=== PATIENT | female | born 1955 | race Caucasian/White ===

== ENCOUNTER → 2019-08-05 | Day surgery (SDC) | payer OTHER ==
--- NOTE | 2019-08-03 14:27 | Diagnostic Imaging Report ---
Chest, PA and lateral. History: Preoperative evaluation for urologic surgery. Comparison: None available. Discussion: The cardiomediastinal silhouette and pulmonary vasculature are within normal limits. The lungs are clear without evidence of consolidation or effusion. There are no acute osseous abnormalities. IMPRESSION: No acute cardiopulmonary abnormality. Signed by: Jeffry Wilkinson MD on 08/03/2019 2:23 PM
[2019-08-03 14:29] LABS: BASOPHILS % 0.5 % (0.0-1.0); EOSINOPHILS # (AUTO) 0.2 (0.0-0.4); EOSINOPHILS % 2.7 % (0.0-6.0); HEMATOCRIT 36.6 % (34.2-44.1); HEMOGLOBIN 12.1 g/dL (12.0-16.0); LYMPHOCYTES # (AUTO) 3.9 (1.0-3.2); LYMPHOCYTES % 53.5 % (18.0-39.1); MEAN CORPUSCULAR HEMOGLOBIN 31.5 pg (28-32); MEAN CORPUSCULAR HGB CONC 33.1 g/dL (31-35); MEAN CORPUSCULAR VOLUME 95.3 fL (81-99); MONOCYTES # (AUTO) 0.6 (0.2-0.8); NEUTROPHILS # (AUTO) 2.5 (2.1-6.9); NEUTROPHILS % 34.5 % (38.7-80.0); PLATELET COUNT 432 x10e3/uL (140-360); RED BLOOD COUNT 3.84 x10e6/uL (3.6-5.1); RED CELL DISTRIBUTION WIDTH 11.9 % (11.7-14.4)
--- NOTE | 2019-08-03 14:30 | Diagnostic Imaging Report ---
Abdomen, one view on 2 radiographs Clinical indications: Ureteral stone Comparison: None Findings/impression: There is a 7 mm calcific density overlying the right psoas muscle at the L3 level and a 3 mm calcific density overlying the left psoas muscle at the level of the L4 level. Calcific densities overlying the pelvis are likely phleboliths. No acute osseous abnormalities. Signed by: Jeffry Wilkinson MD on 08/03/2019 2:26 PM
[2019-08-03 15:33] LABS: ANION GAP 12.9 mmol/L (8-16); CALCIUM 9.5 mg/dL (8.4-10.2); CREATININE, SERUM 1.56 mg/dL (0.57-1.11); POTASSIUM 4.9 mmol/L (3.5-5.1)
[~2019-08-05] MED LIST: ACETAMINOPHEN325 M1 PO; B&O 60MG R/S 60 MG SUPP PR ONE; DEXAMETHASONE SOD PHOS INJ 4 MG/ML VIAL ONE; FENOFIBRATE145 MG PO; FENTANYL CITRATE/PF 100MCG/2 ML INJ ONE; FLOMAX0.4 MG PO; GENTAMICIN 120MG/NS 100ML 100 ML ONE; IOPAMIDOL 300MG/ML 50ML INFUS..BTL IV ONE; LIDOCAINE HCL 2% LOCAL INJ 5 ML SDV VIAL INJ ONE; METOPROLOL SUCC25 MG PO; ONDANSETRON HCL INJ 2MG/ML 2ML 2 MG/ML VIAL ONE; PLAQUENIL200 MG PO; PROPOFOL IV EMULSION 10 MG/ML 20 ML VIAL ONE; SEVOFLURANE INHAL SOLN 250 ML PEN BTL ONE; VENTOLIN HFA18 GM INH
--- OUTSIDE RECORDS SUMMARY | 2019-08-05 11:54 | XMS REPORT | Summary of Care ---
Author Author [facility] - Health Organization [facility] - Health Address Unknown Phone Unavailable Care Team Providers Care Pole Incisor Operator Name Role Phone Julio C Darden PCP Reason for Visit * Reason Comments Follow-up * (Routine) Referred By Contact Referred To Contact Status Reason Specialty Diagnoses / Procedures Julio C Darden [address] [place] [address] [address] [place] [address] Higinio Henry MD [address] [address] Authorized [facility] Diagnoses / Dermatology Discoid lupus erythematosus P rocedures CONSULT/REFERRAL DERMATOLOGY Encounter Details Care Team Description Date Type Department Higinio Henry MD [address] [id number] Ulcer of ankle, unspecified laterality, limited to breakdown of skin (Primary Dx); Rash and nonspecific skin eruption; Cutaneous lupus erythematosus; Medication monitoring encounter 01/15/2019 Office Visit [facility] Dermatology-[address] [phone] Allergies Comments Active Allergy Reactions Severity Noted Date Atorvastatin Rash High 03/13/2017 Patient has reaction to swelling in hands after CT 07/23/2018 Iodine And Iodide Swelling 07/24/2018 Containing Products HER BODY TURNS RED BURNING AND ITCHING Niacin Unknown - See 09/01/2010 comments Penicillins Hives, 01/23/2018 Shortness of Breath Mqcbvqs-Bvv-Bbf Reductase Hives, Other Inhibitors - See comments Varenicline Rash Medium documented as of this encounter (statuses as of 01/16/2019) Medications End Date Status Medication Sig Dispensed Refills Start Date Active ALBUTEROL SULFATE Inhale as 0 (VENTOLIN INHALE) needed. 1 Active metformin ER 500 mg 24 hr Take 1,000 mg 0 tablet by mouth 2 (two) times daily. Active ergocalciferol, vitamin Take by 0 D2, (VITAMIN D ORAL) mouth weekly. Active icosapent ethyl (VASCEPA) Take by 0 1 gram capsule mouth daily. Active fenofibrate 54 mg tablet 0 8 Active nicotine 21 mg/24 hr nicotine 21 0 patch mg/24 hr daily transdermal patch Active famciclovir 500 mg tablet 0 5 Active TRULICITY 1.5 mg/0.5 mL 0 PnIj 9 Active mupirocin 2 % Apply to 30 g 0 ointmentIndications: area(s) 3 9 Ulcer of ankle, (three) times unspecified laterality, daily. limited to breakdown of skin Active halobetasol 0.05 % Apply to 150 g 2 creamIndications: Rash area(s) 2 9 and nonspecific skin (two) times eruption daily. Active hydroxychloroquine Take 1 tablet 90 tablet 1 (PLAQUENIL) 200 mg by mouth 9 tabletIndications: daily. Cutaneous lupus erythematosus, Medication monitoring encounter Active hydrOXYzine 10 mg Take 1 tablet 90 tablet 1 tabletIndications: by mouth 9 Cutaneous lupus every 8 erythematosus (eight) hours as needed for Itching. 01/15/2019 Discontinued hydroxychloroquine Take 1 tablet 90 tablet 1 (PLAQUENIL) 200 mg by mouth 9 tabletIndications: daily. Cutaneous lupus erythematosus, Medication monitoring encounter 01/15/2019 Discontinued halobetasol 0.05 % Apply to 150 g 2 creamIndications: Rash area(s) 2 9 and nonspecific skin (two) times eruption daily. documented as of this encounter (statuses as of 01/16/2019) Active Problems Problem Noted Date Microscopic hematuria 07/22/2018 Current smoker 07/22/2018 Exposure to chemical pollution 07/22/2018 History of nephrolithiasis 07/22/2018 documented as of this encounter (statuses as of 01/16/2019) Social History Date Tobacco Use Types Packs/Day Years Used Current Every Day Smoker Cigarettes 1 Smokeless Tobacco: Never Used Drinks/Week oz/Week Comments Alcohol Use No Sex Assigned at Date Recorded Not on file Industry Job Start Date Occupation Not on file Not on file Not on file Travel End Travel History Travel Start No recent travel history available. documented as of this encounter Last Filed Vital Signs Not on filedocumented in this encounter Progress Notes * Bridgett Beaulieu MD - 01/15/2019 9:50 AM CDT CC: lupus follow up HPI Elena Tanner is a 63 year old female who presents for follow up of biopsy proven lupus erythematous. She is currently on Plaquenil 200mg daily which has h elped significantly. Overall she reports improvement and today she does not poin t out any active areas today. Also has an ulcer on her left foot, thinks she scratched it open about 10-14days ago. Initially had a black crust, took 10days of doxycycline from her PCP. Now just using neosporin and bandaids daily. DIAGNOSIS: RIGHT MID BACK: INTERFACE DERMATITIS AND SUPERFICIAL AND DEEP DENSE PERIVASCULAR/ADNEXAL LYMPHOPLASMACYTIC INFILTRATE WITH INCREASED DERMAL MUCIN CONSISTENT WITH LUPUS ERYTHEMATOSUS NO EOSINOPHILS OR EVIDENCE OR PRIMARY IMMUNOBULLOUS DISORDER SEEN IMMUNOSTAINS FOR CD3, CD4, CD5, CD8, CD20, AND CD30 EXAMINED LEVELS AND COLLOIDAL IRON STAIN (+) EXAMINED MADISYN STAIN NEGATIVE FOR ORGANISMS, POSITIVE CONTROLS EXAMINED COMMENT: Comment: The clinical photographs and patient chart were reviewed. The immunohistochemical panel reveals the infiltrate to be composed of predomina tely CD3+ T-lymphocytes with an appropriate ratio of CD4: CD8 (<4:1) positive T-lymphocytes with retention of CD5 expression. Admixed within the T-cell infiltrate is a small population of CD20+ B-lymphocytes. The i mmunoprofile is consistent with a reactive infiltrate composed predominately of CD3 and CD4 positive T-lymphocytes , as seen in cutaneous lupus Erythematosus. Histories Past Medical History: Diagnosis Date Diabetes mellitus High cholesterol Kidney stone 2006 Allergies Allergies Allergen Reactions Atorvastatin Rash Varenicline Rash Contrast [Iodine And Iodide Containing Products] Swelling Patient has reaction to swelling in hands after CT 07/23/2018 Niacin Unknown - See comments HER BODY TURNS RED BURNING AND ITCHING Pcn [Penicillins] Hives and Shortness of Breath Gdzhhgb-Ojp-Vcj Reductase Inhibitors Hives and Other - See comments Medications Current Outpatient Medications on File Prior to Visit Medication Sig Dispense Refill halobetasol 0.05 % cream Apply to area(s) 2 (two) times daily. 150 g 2 hydroxychloroquine (PLAQUENIL) 200 mg tablet Take 1 tablet by mouth daily. 9 0 tablet 1 TRULICITY 1.5 mg/0.5 mL PnIj famciclovir 500 mg tablet nicotine 21 mg/24 hr patch nicotine 21 mg/24 hr daily transdermal patch fenofibrate 54 mg tablet ergocalciferol, vitamin D2, (VITAMIN D ORAL) Take by mouth weekly. icosapent ethyl (VASCEPA) 1 gram capsule Take by mouth daily. metformin ER 500 mg 24 hr tablet Take 1,000 mg by mouth 2 (two) times daily. ALBUTEROL SULFATE (VENTOLIN INHALE) Inhale as needed. No current facility-administered medications on file prior to visit. Review of Systems Constitutional: Pain (-) Skin: Itching (-), Rash (+) Physical Exam General: No acute distress Psychiatric: Normal affect Pulmonary: Breathing unlabored FACE: Negative EYES: Negative BACK: Positive RIGHT ARM: Negative LEFT ARM: Positive RIGHT LEG: Positive LEFT LEG: Positive Assessment/Plan 1. Ulceration - limited breakdown of the skin - previously treated with 10 days of doxycycline, no signs of infection today - debridement offered - mupirocin and bandage applied today in clinic. - start mupirocin 2% ointment daily with bandage changes. 2. Milia Cyst - Wood border - benign etiology discussed, reassurance provided. 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 - Continues to be well controlled today - Previous path by outside physician: superficial and deep perivascular infiltra te on 02/2018. Path report did not specify eosinophils present. - Repeat rash biopsy on 06/30/18 also c/w lupus erythematosus Labs reviewed: - CORY negative from outside physician on 04/01/18. - CORY, EVENT SET UP SPECIALIST, SSA, SSB, C3 and C4 were all wnl on 07/17/18. - Negative pemphigoid panel and epidermal transglutaminase - DIF and IIF negative - CMP, CBC, CK, G6PD on 08/06/18 - Pt says she showed the CXR from 07/30/18 to her PCP, who told the patient that the lung lesion has not significantly changed. Records provided today and upload ed into chart - Has been treated for scabies in the past. - Continue halobetasol 0.05% cream BID PRN lesions - Discontinued saxagliptin-metformin in Jun 2018 - She reports seeing ophthalmology at [facility] about twice a year due to "inc reased pressure in the eyes", per pt. At her most recent appointment she says th e plsql developer did not find any retinal findings or other findings that would prevent her from starting plaquenil. She says the plsql developer told her that they were faxing the results to the [facility] Dermatology clinic. She has a follow u p with them in jan 2019. - Continue plaquenil 200mg PO daily; discussed the importance of annual eye exa ms, states she has an appointment in 3 weeks. RTC 2 wks Patient was seen in clinic and plan of care discussed with Higinio Henry MD. Bridgett Beaulieu MD Dermatology PGY-2 01/15/2019 * Loretta Cheung MA - 01/15/2019 9:50 AM CDT Patient is being seen in clinic for follow up Patient is alert,ambulatory,and oriented. Medication and allergies reviewed with patient. Vital sign deferred by doctor. No pain noted at this time. No falls in the past 12 months. Preferred language is [place]. Loretta Cheung MA 01/15/2019 9:50 AM documented in this encounter Plan of Treatment Care Team Description Date Type Specialty Higinio Henry MD [id number] [place] [address] [phone] 02/02/2019 Office Visit Dermatology Health Maintenance Due Date Last Done Comments HEPATITIS C (HCV) SCREEN 1955 PNEUMOCOCCAL 0-64 YEARS 1963 COMBINED SERIES (1 of 1 - PPSV23) DTaP,Tdap,and Td Vaccines 1976 (1 - Tdap) MAMMOGRAM 1997 COLONOSCOPY 2007 Zoster Recombinant 2007 Vaccine (SHINGRIX) (1 of 2) LUNG CANCER SCREEN: 2012 Recommended for age 55-80 with 30 + pack year history INFLUENZA VACCINE (#1) 2019 01/11/2018 PAP SMEAR 01/23/2021 01/23/2018 documented as of this encounter Results Not on filedocumented in this encounter Visit Diagnoses Diagnosis Ulcer of ankle, unspecified laterality, limited to breakdown of skin - Primary Rash and nonspecific skin eruption Rash and other nonspecific skin eruption Cutaneous lupus erythematosus Lupus erythematosus Medication monitoring encounter Encounter for therapeutic drug monitoring documented in this encounter Insurance Type Payer Benefit Subscriber ID Effective Phone Address Plan / Dates Group [id number] 2006- [facility] Present (Home) [place] [address] documented as of this encounter
--- OUTSIDE RECORDS SUMMARY | 2019-08-05 11:54 | XMS REPORT | Summary of Care ---
Author Author [facility] [[email or web address]] - Health Organization [facility] [[email or web address]] - Health Address Unknown Phone Unavailable Care Team Providers Care Cheese Processor Name Role Phone Julio C Darden PCP Reason for Visit * Reason Comments Follow-up * (Routine) Referred By Contact Referred To Contact Status Reason Specialty Diagnoses / Procedures Julio C Darden [address] [place] [address] [address] [place] [address] Higinio Henry MD [address] [facility] [id number] [place] [id number] Authorized [facility] Diagnoses / Dermatology Discoid lupus erythematosus P rocedures CONSULT/REFERRAL DERMATOLOGY Encounter Details Care Team Description Date Type Department Higinio Henry MD [address] [phone] Ulcer of ankle, unspecified laterality, limited to breakdown of skin (Primary Dx); Rash and nonspecific skin eruption; Cutaneous lupus erythematosus; Medication monitoring encounter 01/15/2019 Office Visit [facility] Dermatology-[address] [phone] Allergies Comments Active Allergy Reactions Severity Noted Date Atorvastatin Rash High 03/13/2017 Patient has reaction to swelling in hands after CT 07/23/2018 Iodine And Iodide Swelling 07/24/2018 Containing Products HER BODY TURNS RED BURNING AND ITCHING Niacin Unknown - See 09/01/2010 comments Penicillins Hives, 01/23/2018 Shortness of Breath Cokwzko-Rym-Mpw Reductase Hives, Other Inhibitors - See comments Varenicline Rash Medium documented as of this encounter (statuses as of 01/15/2019) Medications End Date Status Medication Sig Dispensed [...] as of this encounter (statuses as of 01/15/2019) Active Problems Problem Noted Date Microscopic hematuria 07/22/2018 Current smoker 07/22/2018 Exposure to chemical pollution 07/22/2018 History of nephrolithiasis 07/22/2018 documented as of this encounter (statuses as of 01/15/2019) Social History Date Tobacco Use Types Packs/Day [...] Pcn [Penicillins] Hives and Shortness of Breath Jvzwrtt-Abb-Ulu Reductase Inhibitors Hives and Other - See [...] with bandage changes. 2. Milia Cyst - [place] border - benign etiology discussed, reassurance provided. [...] from outside physician on 04/01/18. - CORY, BRIM POUNCER, SSA, SSB, C3 and C4 were all [...] 2018 - She reports seeing ophthalmology at [facility] about twice a year due to "inc reased pressure in the eyes", per pt. At her most recent appointment she says th e auto hiker did not find any retinal findings or other findings that would prevent her from starting plaquenil. She says the auto hiker told her that they were faxing the results to the [facility] [[email or web address]] Dermatology clinic. She has a follow u [...] the past 12 months. Preferred language is Faroese. Loretta Cheung MA 01/15/2019 9:50 AM documented in this encounter Plan of Treatment Care Team Description Date Type Specialty Higinio Henry MD [id number] [place] [address] [phone] 02/02/2019 Office Visit Dermatology Health Maintenance Due [...] Effective Phone Address Plan / Dates Group [id number] 2006- [facility] Present (Home) [place] [address] documented as of this encounter
--- OUTSIDE RECORDS SUMMARY | 2019-08-05 11:54 | XMS REPORT ---
Author Author [facility] Address Unknown Phone Unavailable Care Team Providers Care Organizational Development Specialist Name Role Phone NILAY BABB Unavailable Unavailable Payers Payer Name Policy Type Policy Number Effective Date Expiration Date Problems This patient has no known problems. Allergies, Adverse Reactions, Alerts Allergy Name Allergy Type Status Severity Reaction(s) Onset Date Inactive Date Treating Clinician Comments potassium chloride DA Active SV 2019-07-25 00:00:00 Iodinated Contrast Media DA Active SV 2019-07-22 00:00:00 Penicillins DA Active MO 2019-07-22 00:00:00 Htoledl-Xpi-Mvb Reductase Inhibitor DA Active MO 2019-07-22 00:00:00 niacin DA Active SC 2019-07-22 00:00:00 varenicline DA Active MO 2019-07-22 00:00:00 Iodinated Contrast- Oral and IV Dye DA Active SV 2019-02-08 00:00:00 Penicillins DA Active U 2018-07-24 00:00:00 Lgwacas-Htu-Hmh Reductase Inhibitor DA Active U 2018-07-24 00:00:00 niacin DA Active U 2018-07-24 00:00:00 varenicline DA Active U 2018-07-24 00:00:00 Medications This patient has no known medications. Results Test Description Test Time Test Comments Text Results Atomic Results Result Comments ABDOMEN-1VIEW (KUB) 2019-08-03 14:24:00 [place] [address] Patient Name: HÉCTOR GUZMAN MR #: [id number] : 1955 Age/Sex: 64/F Req #: [id number] Adm Physician: Ordered by: NILAY BABB MD Report #: [id number] Location: OR Room/Bed: Procedure: [id number] DX/ABDOMEN-1VIEW (KUB) Exam Date: 08/03/19 Exam Time: 1405 REPORT STATUS: Signed Abdomen, one view on 2 radiographs Clinical indic ations: Ureteral stone Comparison: None Findings/impression: There is a 7 mm calcific density overlying the right psoas muscle at the L3 level and a 3 mm calcific density overlying the left psoas muscle at the level of the L4 level. Calcific densities overlying the pelvis are likely phleboliths. No acute osseous abnormalities. Signed by: Jeffry Leyva MD on 08/03/2019 2:26 PM Dictated By: JEFFRY LEYVA MD 25 Transcribed By: MICA on 08/03/191425 COPY TO: NILAY BABB MD CHEST 2 VIEWS 2019-08-03 14:23:00 [place] [address] Patient Name: HÉCTOR GUZMAN MR #: [id number] : 1955 Age/Sex: 64/F Req #: [id number] Adm Physician: Ordered by: NILAY BABB MD Report #: [id number] Location: OR Room/Bed: Procedure: [id number] DX/CHEST 2 VIEWS Exam Date: 08/03/19 Exam Time: 1405 REPORT STATUS: Signed Chest, PA and lateral. History: Preoperative evaluation f or urologic surgery. Comparison: None available. Discussion: The cardiomediastinal silhouette and pulmonary vasculature are within normal limits. The lungs are clear without evidence of consolidation or effusion. There are no acute osseous abnormalities. IMPRESSION: No acute cardiopulmonary abnormality. Signed by: Jeffry Leyva MD on 08/03/2019 2:23 PM Dictated By: JEFFRY LEYVA MD 22 Transcribed By: MICA on 08/03/191422 COPY TO: NILAY BABB MD GLUBED 2019-07-28 11:44:00 GLUBED (test code=GLUBED) 112 mg/dL 70-110 - XR CYSTOURETHRO [id number] 11:30:00 FAX: Nilay Kuhn MD [phone] [place]: St: DIS FAX: Julio C Poe MD [phone] FAX: [place]y [place] [phone] Name: HÉCTOR GUZMAN [facility] : 1955 Age/S: 64/F [address] [facility] [place] Unit #: [id number] Loc: E.[address] [place], [place]: [place] [address] Acct: [id number] Dis Date: [id number] Status: DIS IN ONE #: [phone] Exam Date: 07/28/2019 0820 FAX #: [phone] Reason: BILATERAL RETROGRADES EXAMS: CPT CODE: [id number] XR CYSTOURETHRO RETRO 18729 REASON FOR EXA M: Pyelonephritis, stent placement Bilateral retrograde pyelogram. Fluoroscopy time 1.4 minutes, total dose 16.18 mGy. 4 total films were obtained The left ureter is access for the pyelogram injection showing normal diameter. Tiny filling defect at the renal pelvi s level likely a tiny air bubble as no stones are seen in the left ureter or calyces The right ureter cannot be entered for the injection. IMPRESSION: Left ureter intact. Tiny air bubbles suspected proxi mal left ureter. No access for the right ureteral injection could be obtained. Location: U 19 [facility] Signed by Niraj Aguilar M.D on 07/28/2019 a t 1130 Reported and signed by: Niraj alvarado M.D CC: Nilay Babb MD; Julio C Darden MD; Frances holliday MD Technologist: GEORGE GREGORY Trnscrd Date/Time/By: 07/28/2019 (0602) : By: [email or web address] PAGE 1 Signed Report FAX: Froylan Kuhn MD [phone] [place]: St: DIS FAX: Julio C Poe MD [phone] FAX: [place] [phone] Name: HÉCTOR ODONNELL [facility] : 1955 Age/S: 64/F [address] [facility] Unit #: [id number] c: [address] [place] [address] [place]: [place] [address] Acct: [id number] Dis Date: 317 Status: DIS IN PHONE #: [phone] Exam Date: 07/28/2019819 FAX #: [phone] Anna son: BILATERAL RETROGRADES EXAMS: CPT CODE: [id number] XR CYSTOURETHRO RETRO 48247 <Continued> Orig Print D/T: S: 07/28/2019 (7568) PAGE 2 Signed Report BASIC METABOLIC [id number] 10:48:00* Test Item Value Reference Range Comments SODIUM (test code=NA) 141 mmol/l 134.0-147.0 POTASSIUM (test code=K) 3.6 mmol/L 3.6-5.2 CHLORIDE (test code=CL) 105 mmol/l 98.0-107.0 CARBON DIOXIDE (test code=CO2) 26.9 mmol/l 21.0-33.0 ANION GAP (test code=GAP) 12.7 0-20 GLUCOSE (test code=GLU) 105 mg/dl 70.0-110.0 BLOOD UREA NITROGEN (test code=BUN) 17 mg/dl 7.0-18.0 CREATININE (test code=CREAT) 1.25 mg/dL 0.60-1.30 GFR NON BLACK (test code=GFRNONBLACK) 46 mL/min 80-90 GFR BLACK (test code=GFRBLACK) 56 mL/min 97-109 CALCIUM (test code=CA) 9.1 mg/dl 8.0-10.5 PT IN SURGERY @ 0915 [id number] 21:06:00* Test Item Value Reference Range Comments GLUBED (test code=GLUBED) 140 mg/dL 70-110 [id number] 16:35:00* Test Item Value Reference Range Comments GLUBED (test code=GLUBED) 97 mg/dL 70-110 [id number] 11:45:00* Test Item Value Reference Range Comments GLUBED (test code=GLUBED) 102 mg/dL 70-110 [id number] 08:37:00* Test Item Value Reference Range Comments GLUBED (test code=GLUBED) 83 mg/dL 70-110 - XR ABDOMEN [id number] 08:25:00 FAX: Dipti Garcia [phone] [place]: St: ADM FAX: Julio C Poe MD [phone] FAX: [place] [phone] Name: HÉCTOR GUZMAN [facility] : 1955 Age/S: 64/F [address] [facility] Unit #: [id number] Loc: E.208 [place], [place] Phys: Dipti Esqueda [address] Acct: [id number] Dis Date: Status: ADM IN ONE #: [phone] Exam Date: 07/27/2019 0700 FAX #: [phone] Reason: Eval UVJ stone EXAMS: CPT CODE: [id number] XR ABDOMEN 2V 27559 REASON FOR EXA M: Right ureterovesicular junction calculus, reassessment. A bdomen, single view. The calcification at the expected area of the right ureterovesicular junction is still seen, tiny. Other phlebolith-li ke densities in the pelvis, stable. No other obvious renal or ureteral ca lculi. Cholecystectomy. Normal gas pattern and stool content. Mild levoscoliosis in the spine. IMPRESSION: Tiny calculus at the expected area of the right ureterovesicular junction, stable in po sition. Normal gas pattern and stool content. Location: 19 at 0825 Reported and signed by: Niraj Aguilar M.D CC: Tonya PRICE; Julio C Darden MD; Frances Wilks MD Technologist: JOON CALLAWAY Trnscrd Date/Time/By: 07/27/2019 (0825) : By: [email or web address] PAGE 1 Signed Report FAX: Dipti Garcia [phone] [place]: St: ADM FAX: Julio C Poe MD [phone] FAX: Dusty Pretty [phone] Name: HÉCTOR GUZMAN [facility] : 1955 Age/S: 64/F [address] [facility] [place] Unit #: [id number] Loc: E.[address] [place], [place] Phys: Dipti [place]queda [address] Acct: [id number] Dis Date: Status: ADM IN PHONE #: [phone] Exam Date: 07/27/2019 0700 FAX #: [phone] Reason: Eval UVJ stone EXAMS: CPT CODE: [id number] XR ABDOMEN 2V 36840 < Continued> Orig Print D/T: S: 07/27/2019 (0828) PAGE 2 Signed Report [id number] 20:39:00* Test Item Value Reference Range Comments GLUBED (test code=GLUBED) 86 mg/dL 70-110 [id number] 16:33:00* Test Item Value Reference Range Comments GLUBED (test code=GLUBED) 115 mg/dL 70-110 [id number] 11:52:00* Test Item Value Reference Range Comments GLUBED (test code=GLUBED) 86 mg/dL 70-110 [id number] 07:52:00* Test Item Value Reference Range Comments GLUBED (test code=GLUBED) 85 mg/dL 70-110 BASIC METABOLIC [id number] 04:16:00* Test Item Value Reference Range Comments SODIUM (test code=NA) 142 mmol/l 134.0-147.0 POTASSIUM (test code=K) 3.3 mmol/L 3.6-5.2 CHLORIDE (test code=CL) 109 mmol/l 98.0-107.0 CARBON DIOXIDE (test code=CO2) 23.5 mmol/l 21.0-33.0 ANION GAP (test code=GAP) 12.8 0-20 GLUCOSE (test code=GLU) 89 mg/dl 70.0-110.0 BLOOD UREA NITROGEN (test code=BUN) 12 mg/dl 7.0-18.0 CREATININE (test code=CREAT) 1.31 mg/dL 0.60-1.30 GFR NON BLACK (test code=GFRNONBLACK) 44 mL/min 80-90 GFR BLACK (test code=GFRBLACK) 53 mL/min 97-109 CALCIUM (test code=CA) 8.7 mg/dl 8.0-10.5 [id number] 16:24:00* Test Item Value Reference Range Comments GLUBED (test code=GLUBED) 89 mg/dL 70-110 - XR ABDOMEN [id number] 13:23:00 FAX: Dipti Garcia [phone] [place]: St: ADM FAX: Julio C Poe MD [phone] FAX: [place] [phone] Name: HÉCTOR GUZMAN [facility] : 1955 Age/S: 64/F [address] [facility] Unit #: [id number] Loc: E.[address] [place], [place] Phys: Dipti [place]qu[place] [address] Acct: [id number] Dis Date: Status: ADM IN ONE #: [phone] Exam Date: 07/25/2019 1145 FAX #: [phone] Reason: Eval UVJ stone EXAMS: CPT CODE: [id number] XR ABDOMEN 2V 69737 Examination: Two-view abdomen Location code: H60 Comparison: 07/23 Discussion: Clinical history is remarkable for right UVJ calculus. When compared to the prior examination the all radiopaque calculus in the right hemipelvis thought to be a UVJ calcul us is still present. It is essentially unchanged in position. There is a nonspecific gas pattern in the abdomen. Patient is status p ost cholecystectomy. Fecal debris seen scattered throughout the co enoch consistent with constipation. Impression: 1. Radiopaque calculus in the right hemipelvis unchanged in location or appearance when compared to the prior study. Electronically S igned by KIMBERLY CONNELL on 07/25/2019 at 1323 Reported and s igned by: KIMBERLY CONNELL CC: Dipti PRICE; Julio C Darden MD; Dusty Wilks MD Technologist: BEAN OCAMPO Trnscrd Date/Time/By: 07/25/2019 (2474) : By: [email or web address] PAGE 1 Signed Report FAX: Dipti Garcia [phone] [place]: St: ADM FAX: Carmine Poe MD [phone] FAX: [place] [phone] ---- Nam e: HÉCTOR GUZMAN [facility] : Age/S: 64/F [address] [facility] Unit #: [id number] Loc: [address] [place], [place] Phys: Sruthi Esqueda [address] Acct: [id number] Dis Shen e: Status: ADM IN PHONE #: Exam Date: 07/25/2019 1145 FAX #: [phone] Reason: Eval UVJ stone EXAMS: CPT CODE: [id number] XR ABDOMEN 2V 68838 <Continued> Orig Print D/T: S: 07/25/2019 (4002) PAGE 2 Signed Report GLUBED 2019-07-25 12:10:00* Test Item Value Reference Range Comments GLUBED (test code=GLUBED) 101 mg/dL 70-110 [id number] 07:32:00* Test Item Value Reference Range Comments GLUBED (test code=GLUBED) 82 mg/dL 70-110 COMPREHENSIVE METABOLIC [id number] 06:10:00* Test Item Value Reference Range Comments SODIUM (test code=NA) 139 mmol/l 134.0-147.0 POTASSIUM (test code=K) 3.3 mmol/L 3.6-5.2 CHLORIDE (test code=CL) 105 mmol/l 98.0-107.0 CARBON DIOXIDE (test code=CO2) 23.4 mmol/l 21.0-33.0 ANION GAP (test code=GAP) 13.9 0-20 GLUCOSE (test code=GLU) 100 mg/dl 70.0-110.0 BLOOD UREA NITROGEN (test code=BUN) 12 mg/dl 7.0-18.0 CREATININE (test code=CREAT) 1.45 mg/dL 0.60-1.30 GFR NON BLACK (test code=GFRNONBLACK) 39 mL/min 80-90 GFR BLACK (test code=GFRBLACK) 47 mL/min 97-109 TOTAL PROTEIN (test code=PROT) 6.9 gm/dL 6.4-8.2 ALBUMIN (test code=ALB) 3.0 gm/dl 3.2-4.7 CALCIUM (test code=CA) 8.8 mg/dl 8.0-10.5 BILIRUBIN TOTAL (test code=BILT) 0.6 mg/dl 0.0-1.0 SGOT/AST (test code=AST) 15 Units/L 15.0-37.0 SGPT/ALT (test code=ALT) 23 Units/L 12.0-78.0 ALKALINE PHOSPHATASE TOTAL (test code=ALKP) 68 Units/L 50.0-136.0 CBC W/AUTO [id number] 05:47:00* Test Item Value Reference Range Comments WHITE BLOOD CELL (test code=WBC) 7.6 K/mm3 4.5-11.0 RED BLOOD CELL (test code=RBC) 3.41 M/mm3 3.80-5.20 HEMOGLOBIN (test code=HGB) 10.6 gm/dL 12.0-16.0 HEMATOCRIT (test code=HCT) 31.6 % 36.0-48.0 MEAN CELL VOLUME (test code=MCV) 92.7 UM3 82.0-99.0 MEAN CELL HGB (test code=MCH) 31.1 UUG 25.5-32.5 MEAN CELL HGB CONCETRATION (test code=MCHC) 33.5 gm/dL 29.0-35.5 RED CELL DISTRIBUTION WIDTH (test code=RDW) 11.6 % 11.5-15.0 RED CELL DISTRIBUTION WIDTH SD (test code=RDW-SD) 39.2 fL 34.8-50.2 PLATELET COUNT (test code=PLT) 171 K/mm3 150-400 MEAN PLATELET VOLUME (test code=MPV) 10.5 fl 7.4-10.4 NEUTROPHIL % (test code=NT%) 66.4 % 49.0-76.0 IMMATURE GRANULOCYTE % (test code=IG%) 0.3 % 0.0-0.4 LYMPHOCYTE % (test code=LY%) 19.6 % 23.0-38.0 MONOCYTE % (test code=MO%) 12.1 % 1.0-10.0 EOSINOPHIL % (test code=EO%) 1.5 % 1.0-5.0 BASOPHIL % (test code=BA%) 0.1 % 0.0-1.0 NEUTROPHIL # (test code=NT#) 5.0 K/mm3 2.4-6.3 IMMATURE GRANULOCYTE # (test code=IG#) 0.02 x10 3/uL 0.00-0.07 LYMPHOCYTE # (test code=LY#) 1.5 K/mm3 1.2-4.0 MONOCYTE # (test code=MO#) 0.9 K/mm3 0.0-0.6 EOSINOPHIL # (test code=EO#) 0.1 K/MM3 0.0-0.7 BASOPHIL # (test code=BA#) 0.0 K/mm3 0.0-0.2 [id number] 21:14:00* Test Item Value Reference Range Comments GLUBED (test code=GLUBED) 79 mg/dL 70-110 [id number] 18:33:00* Test Item Value Reference Range Comments GLUBED (test code=GLUBED) 142 mg/dL 70-110 [id number] 13:46:00* Test Item Value Reference Range Comments GLUBED (test code=GLUBED) 101 mg/dL 70-110 COMPREHENSIVE METABOLIC [id number] 12:23:00* Test Item Value Reference Range Comments SODIUM (test code=NA) 138 mmol/l 134.0-147.0 POTASSIUM (test code=K) 3.6 mmol/L 3.6-5.2 CHLORIDE (test code=CL) 104 mmol/l 98.0-107.0 CARBON DIOXIDE (test code=CO2) 23.5 mmol/l 21.0-33.0 ANION GAP (test code=GAP) 14.1 0-20 GLUCOSE (test code=GLU) 104 mg/dl 70.0-110.0 BLOOD UREA NITROGEN (test code=BUN) 15 mg/dl 7.0-18.0 CREATININE (test code=CREAT) 1.61 mg/dL 0.60-1.30 GFR NON BLACK (test code=GFRNONBLACK) 34 mL/min 80-90 GFR BLACK (test code=GFRBLACK) 42 mL/min 97-109 TOTAL PROTEIN (test code=PROT) 6.6 gm/dL 6.4-8.2 ALBUMIN (test code=ALB) 3.0 gm/dl 3.2-4.7 CALCIUM (test code=CA) 8.4 mg/dl 8.0-10.5 BILIRUBIN TOTAL (test code=BILT) 0.5 mg/dl 0.0-1.0 SGOT/AST (test code=AST) 16 Units/L 15.0-37.0 SGPT/ALT (test code=ALT) 22 Units/L 12.0-78.0 ALKALINE PHOSPHATASE TOTAL (test code=ALKP) 59 Units/L 50.0-136.0 CBC W/AUTO [id number] 12:04:00* Test Item Value Reference Range Comments WHITE BLOOD CELL (test code=WBC) 8.4 K/mm3 4.5-11.0 RED BLOOD CELL (test code=RBC) 3.36 M/mm3 3.80-5.20 HEMOGLOBIN (test code=HGB) 10.5 gm/dL 12.0-16.0 HEMATOCRIT (test code=HCT) 31.6 % 36.0-48.0 MEAN CELL VOLUME (test code=MCV) 94.0 UM3 82.0-99.0 MEAN CELL HGB (test code=MCH) 31.3 UUG 25.5-32.5 MEAN CELL HGB CONCETRATION (test code=MCHC) 33.2 gm/dL 29.0-35.5 RED CELL DISTRIBUTION WIDTH (test code=RDW) 11.8 % 11.5-15.0 RED CELL DISTRIBUTION WIDTH SD (test code=RDW-SD) 39.7 fL 34.8-50.2 PLATELET COUNT (test code=PLT) 162 K/mm3 150-400 MEAN PLATELET VOLUME (test code=MPV) 10.8 fl 7.4-10.4 NEUTROPHIL % (test code=NT%) 73.4 % 49.0-76.0 IMMATURE GRANULOCYTE % (test code=IG%) 0.6 % 0.0-0.4 LYMPHOCYTE % (test code=LY%) 16.0 % 23.0-38.0 MONOCYTE % (test code=MO%) 9.1 % 1.0-10.0 EOSINOPHIL % (test code=EO%) 0.7 % 1.0-5.0 BASOPHIL % (test code=BA%) 0.2 % 0.0-1.0 NEUTROPHIL # (test code=NT#) 6.2 K/mm3 2.4-6.3 IMMATURE GRANULOCYTE # (test code=IG#) 0.05 x10 3/uL 0.00-0.07 LYMPHOCYTE # (test code=LY#) 1.4 K/mm3 1.2-4.0 MONOCYTE # (test code=MO#) 0.8 K/mm3 0.0-0.6 EOSINOPHIL # (test code=EO#) 0.1 K/MM3 0.0-0.7 BASOPHIL # (test code=BA#) 0.0 K/mm3 0.0-0.2 - XR ABDOMEN 1 [id number] 09:14:00 FAX: Dipti Garcia [phone] [place]: St: ADM FAX: Julio C Poe MD [phone] FAX: [place]y [place] [phone] Name: HÉCTOR GUZMAN [facility] : 1955 Age/S: 64/F [address] [facility] [place] Unit #: [id number] Loc: E.[address] [place], [place] Phys: Dipti Esqueda [address] Acct: [id number] Dis Date: Status: ADM IN ONE #: [phone] Exam Date: 07/24/2019 0842 FAX #: [phone] Reason: Progression of stone EXAMS: CPT CODE: [id number] XR ABDOMEN 1 V 33716 EXAM: XR ABDOM EN 1 VIEW INDICATION: Progression of stone LOCATION: B2 COMPARISON: None. TECHNIQUE: AP view of the a bdomen. FINDINGS: Lines, tubes and hardware: None. Lower thorax: Unremarkable where visualized. Bowel: Non-obstructive bowel gas pattern. Other organs: Cholecystectomy clips are seen in the right upper quadrant. Calcifications: Overlying bowel gas and stool limits evaluation of distal ureteral calcu li. Faint densities in the region of the right distal ureter likely repre sents some remaining small calculi. Bones: No acute osseous abn ormalities. IMPRESSION: Limited evaluation of distal ureteral calculi due to overlying stool and bowel gas. Faint densities in the region of the right distal ureter likely representing some remai jerod small calculi. at 0914 Reported and signed by: Linda Kulkarni M.D. CC: Dipti PRICE; Julio C Darden MD; Frances Wilks MD Technologist: GEORGE MELVIN Trnscrd Date/Time/By: 07/24/2019 (0 449) : By: [email or web address] PAGE 1 Signed Report FAX: Dipti Garcia [phone] Ca mpus: EM St: ADM FAX: Julio C Poe MD [phone] FAX: [place] [phone] Name: HÉCTOR GUZMAN [facility] : 1955 Age/S: 64/F [address] [facility] [place] Unit #: [id number] Loc: E.208 [facility] Phys: Dipti Esqueda [address] Acct: [id number] Dis Date: Status: ADM IN PHONE #: [phone] Exam Date: 07/24/2019 0842 FAX #: [phone] Reason: Progression of stone EXAMS: CPT CODE: [id number] XR ABDOMEN 1 V 24082 <Continued> Orig Print D/T: S: 07/24/2019 (0983) PAGE 2 Signed Report [id number] 07:37:00* Test Item Value Reference Range Comments GLUBED (test code=GLUBED) 111 mg/dL 70-110 [id number] 22:56:00* Test Item Value Reference Range Comments GLUBED (test code=GLUBED) 103 mg/dL 70-110 [id number] 17:39:00* Test Item Value Reference Range Comments GLUBED (test code=GLUBED) 121 mg/dL 70-110 [id number] 16:09:00* Test Item Value Reference Range Comments HGBA1C% (test code=HGBA1C%) 5.6 %A1C 4.8-6.0 ESTIMATED AVERAGE GLUCOSE (test code=EAG) 114 MG/DL [id number] 14:28:00* Test Item Value Reference Range Comments GLUBED (test code=GLUBED) 126 mg/dL 70-110 - XR ABDOMEN [id number] 08:25:00 FAX: Nilay Kuhn MD [phone] [place]: St: [facility] FAX: Julio C Poe MD [phone] FAX: Dusty [place] [phone] Name: HÉCTOR GUZMAN [facility] : 1955 Age/S: 64/F [address] [facility] Unit #: [id number] Loc: E.[address] [place], [place]: [place] [address] Acct: [id number] Dis Date: Status: ADM IN [facility] #: [phone] Exam Date: 07/23/2019 0745 FAX #: [phone] Reason: RIGHT URETERAL STONE EXAMS: CPT CODE: [id number] XR ABDOMEN 2V 45808 Dictation loca tion: U19. ABDOMEN, UPRIGHT AND SUPINE VIEWS HISTORY: RIGHT UR ETERAL STONE FINDINGS: The multiple stones along the distal right ureter near the UVJ are not significantly changed. The larg est measures 4 mm. Phleboliths are also noted in the left pelvis. Cholec ystectomy. Nonobstructive bowel gas pattern. Mild lumbar spondylosis. IMPRESSION: Multiple right ureteral stone near t he UVJ are likely similar in location to prior CT from 07/22/19. at 0825 Reported and signed by: Tru Mccauley M.D. CC: Nilay Babb MD; Julio C Darden MD; Frances Wilks MD Technologist: GEORGE GREGORY Trnsdrd Date/Time/By: 07/23/2019 (0825) : By: [email or web address] PAGE 1 Signed Report FAX: Nilay Kuhn MD [phone] [place]: St: ADM FAX: Julio C Poe MD [phone] FAX: Velia WareDusty fenton [phone] Name: HÉCTOR GUZMAN [facility] : 1955 Age/S: 64/F [address] [facility] Unit #: [id number] Loc: E.[address] [place], [place]: [place] [address] Acct: [id number] Dis Date: Status: ADM IN PHONE #: [phone] Exam Date: 07/23/2019 0745 FAX #: [phone] Reason: RIGHT URETERAL STONE EXAMS: CPT CODE: [id number] XR ABDOMEN 2V 47128 <Continued> Orig Print D/T: S: 07/23/2019 (0828) PAGE 2 Signed Report [id number] 08:03:00* Test Item Value Reference Range Comments GLUBED (test code=GLUBED) 116 mg/dL 70-110 COMPREHENSIVE METABOLIC [id number] 06:19:00* Test Item Value Reference Range Comments SODIUM (test code=NA) 141 mmol/l 134.0-147.0 POTASSIUM (test code=K) 4.2 mmol/L 3.6-5.2 CHLORIDE (test code=CL) 105 mmol/l 98.0-107.0 CARBON DIOXIDE (test code=CO2) 24.9 mmol/l 21.0-33.0 ANION GAP (test code=GAP) 15.3 0-20 GLUCOSE (test code=GLU) 101 mg/dl 70.0-110.0 BLOOD UREA NITROGEN (test code=BUN) 18 mg/dl 7.0-18.0 CREATININE (test code=CREAT) 1.52 mg/dL 0.60-1.30 GFR NON BLACK (test code=GFRNONBLACK) 37 mL/min 80-90 GFR BLACK (test code=GFRBLACK) 44 mL/min 97-109 TOTAL PROTEIN (test code=PROT) 6.8 GM/DL 6.0-8.1 ALBUMIN (test code=ALB) 3.4 gm/dL 3.2-4.7 CALCIUM (test code=CA) 8.7 mg/dl 8.0-10.5 BILIRUBIN TOTAL (test code=BILT) 0.4 mg/dl 0.0-1.0 SGOT/AST (test code=AST) 13 Units/L 15.0-37.0 SGPT/ALT (test code=ALT) 24 Units/L 12.0-78.0 ALKALINE PHOSPHATASE TOTAL (test code=ALKP) 49 Units/L 50.0-136.0 CBC W/AUTO [id number] 05:54:00* Test Item Value Reference Range Comments WHITE BLOOD CELL (test code=WBC) 14.0 K/mm3 4.5-11.0 RED BLOOD CELL (test code=RBC) 3.89 M/mm3 3.80-5.20 HEMOGLOBIN (test code=HGB) 12.1 gm/dL 12.0-16.0 HEMATOCRIT (test code=HCT) 36.6 % 36.0-48.0 MEAN CELL VOLUME (test code=MCV) 94.1 UM3 82.0-99.0 MEAN CELL HGB (test code=MCH) 31.1 UUG 25.5-32.5 MEAN CELL HGB CONCETRATION (test code=MCHC) 33.1 gm/dL 29.0-35.5 RED CELL DISTRIBUTION WIDTH (test code=RDW) 11.8 % 11.5-15.0 RED CELL DISTRIBUTION WIDTH SD (test code=RDW-SD) 39.8 fL 34.8-50.2 PLATELET COUNT (test code=PLT) 217 K/mm3 150-400 MEAN PLATELET VOLUME (test code=MPV) 10.8 fl 7.4-10.4 NEUTROPHIL % (test code=NT%) 80.0 % 49.0-76.0 IMMATURE GRANULOCYTE % (test code=IG%) 0.6 % 0.0-0.4 LYMPHOCYTE % (test code=LY%) 13.6 % 23.0-38.0 MONOCYTE % (test code=MO%) 5.3 % 1.0-10.0 EOSINOPHIL % (test code=EO%) 0.1 % 1.0-5.0 BASOPHIL % (test code=BA%) 0.4 % 0.0-1.0 NEUTROPHIL # (test code=NT#) 11.2 K/mm3 2.4-6.3 IMMATURE GRANULOCYTE # (test code=IG#) 0.08 x10 3/uL 0.00-0.07 LYMPHOCYTE # (test code=LY#) 1.9 K/mm3 1.2-4.0 MONOCYTE # (test code=MO#) 0.7 K/mm3 0.0-0.6 EOSINOPHIL # (test code=EO#) 0.0 K/MM3 0.0-0.7 BASOPHIL # (test code=BA#) 0.1 K/mm3 0.0-0.2 [id number] 22:49:00* Test Item Value Reference Range Comments HGBA1C% (test code=HGBA1C%) 5.5 %A1C 4.8-6.0 ESTIMATED AVERAGE GLUCOSE (test code=EAG) 111 MG/DL - CT ABD PELVIS W/O [id number] 18:30:00 FAX: Lucrecia Edward MD [phone] [place]: St: REG FAX: Julio C Poe MD [phone] Name: HÉCTOR GUZMAN [facility] : 1955 Age/S: 64/F [address] [facility] [address] [place] [facility] [place] Unit: [id number] Loc: E.EXP [place], [place] Phys: [place] [id number] Acct: [id number] Dis Date: Status: REG ER PHONE #: [phone] Exam Date: 07/22/2019 5357 FAX #: [phone] Reason: RIGHT FLANK PAIN PREVBV STONE EXAMS: CPT CODE: [id number] CT ABD PELVIS W/O CONT [id number] Location: C3 EXAM: CT ABDOMEN AND PELVIS WITHOUT CONTRAST INDICATION: RIGHT FLANK PAIN PREVBV STONE COMPARISON: CT abdomen and pelvis dated 02/08/2019 TECHNIQUE: CT of the abdomen and pelvis was performed with no intravenous contrast. All CT scans are performed using radiation dose reduction technique. Techn ical factors are evaluated and adjusted to insure appropriate moderation o f exposure. Automated dose management technology is applied to adjust the radiation dose to minimize exposure while achieving a diagnostic quality image. DLP: 436.90 mGy-cm FINDINGS: Statements: Lack o f intravenous contrast compromises evaluation of abdominopelvic organs and vasculature. Thoracic: There are unchanged pericardial calcifica tions, nonspecific, but which may represent residual prior pericarditis or trauma. No pericardial effusion. Minimal atelectatic changes are noted w ithin the lung bases. Hepatobiliary/spleen: A few focal calc ifications are identified within the hepatic and splenic parenchyma, which may represent calcified granulomas, sequelae of old, prior granulomatous disease. No focal liver lesion is identified. No intrahepatic or extrahe patic biliary dilatation is seen. Gallbladder: Status post c holecystectomy. Pancreas: Unremarkable. Adrenals: Unremarkable. Kidneys: There is mild right hydronephrosis and hydr oureter secondary to a few small obstructing renal calculi at the ureterov esicular junction measuring up to 4 mm in size (see images 73, 74 and 75 o f series 2). Additional nonobstructing renal calculi are noted within the right renal calyces, measuring up to 3 mm. There is mild PAGE 1 Signed Report (CONTINUED) FAX: Lucrecia Merlos MD [phone] [place]: St: [facility] FAX: Julio C Poe MD [phone] Name: HÉCTOR GUZMAN [facility] : 1955 Age/S: 64/F [address] [facility] Unit: [id number] Loc: E.EXP [place], [place]: [place] [address] Acct: [id number] Dis Date: Status: REG ER PHONE #: [phone] Exam Date: 07/22/2019 1756 FAX #: [phone] Reason: RIGHT FLANK PAIN PREVBV STONE EXAMS: CPT CODE: [id number] CT ABD PELVIS W/O CONT 26111 < Continued> perinephric fat stranding on the right. No left- sided hydronephrosis or hydroureter. No renal calculi are identified on the left. Bladder/Reproductive system: Evaluation of the bladder is limited, but no obvious bladder abnormality is present. Gastrointestinal: Incidental note is made of a small duodenal diverticulum. There are a few colonic diverticuli along the sigmoid colon, without diverticulitis. No bowel obstruction or perienteric inflammation. The appendix is normal. Vascular: Atherosclerotic calcifications are seen within the aorta and branch vessels. No aneurysmal dilatation. Lymphatics: No enlarged lymph nodes by CT size criteria. Bones/Soft Tissues: No acute osseous findings. There are mild multilevel degenerative changes of the lower thoracic and lumbar spine No ventral hernias. Peritoneum/Other: No extraluminal air. No extraluminal fluid. IMPRESSION: Mild right hydroureteronephrosis secondary to a few small nonobstructing renal calculi within the right ureterovesicular junction, measuring up to 4 mm in size (see images 73, 74 and 75 of series 2). Additional nonobstructive renal calculi within the right renal calyces. No left-sided hydronephrosis, hydroureter or renal calculi. at 1830 Reported and signed by: MIKIE RAMOS M.D. PAGE 2 Signed Report (CONTINUED) FAX: Lucrecia Edward MD [phone] [place]: St: REG FAX: Julio C Poe MD [phone] Name: HÉCTOR GUZMAN [facility] : 1955 Age/S: 64/F [address] Unit: [id number] Loc: E.EXP [place], [place]: [place] [address] Acct: [id number] Dis Date: Status: REG ER PHONE #: [phone] Exam Date: 07/22/2019 1756 FAX #: [phone] Reason: RIGHT FLANK PAIN PREVBV STONE EXAMS: CPT CODE: [id number] CT ABD PELVIS W/O CONT 27045 < Continued> CC: Lucrecia Edward MD; Julio C Darden MD Technologist: JEREMY RYAN Trnscrd Dt/Tm: 07/22/2019 (1829) [id number] Orig Print D/T: S: 07/22/2019 (1833 PAGE 3 Signed Report BASIC METABOLIC [id number] 17:59:00* Test Item Value Reference Range Comments SODIUM (test code=NA) 142 mmol/l 134.0-147.0 POTASSIUM (test code=K) 4.4 mmol/L 3.6-5.2 CHLORIDE (test code=CL) 105 mmol/l 98.0-107.0 CARBON DIOXIDE (test code=CO2) 27.0 mmol/l 21.0-33.0 ANION GAP (test code=GAP) 14.4 0-20 GLUCOSE (test code=GLU) 93 mg/dl 70.0-110.0 BLOOD UREA NITROGEN (test code=BUN) 17 mg/dl 7.0-18.0 CREATININE (test code=CREAT) 1.38 mg/dL 0.60-1.30 GFR NON BLACK (test code=GFRNONBLACK) 41 mL/min 80-90 GFR BLACK (test code=GFRBLACK) 50 mL/min 97-109 CALCIUM (test code=CA) 9.5 mg/dl 8.0-10.5 Specimen comments: Clean CatchHEPATIC FUNCTION PANEL [id number] 17:59:00* Test Item Value Reference Range Comments TOTAL PROTEIN (test code=PROT) 7.9 GM/DL 6.0-8.1 ALBUMIN (test code=ALB) 4.2 gm/dL 3.2-4.7 BILIRUBIN TOTAL (test code=BILT) 0.2 mg/dl 0.0-1.0 BILIRUBIN DIRECT (test code=BILD) 0.1 mg/dl 0.0-0.3 SGOT/AST (test code=AST) 16 Units/L 15.0-37.0 SGPT/ALT (test code=ALT) 26 Units/L 12.0-78.0 ALKALINE PHOSPHATASE TOTAL (test code=ALKP) 55 Units/L 50.0-136.0 Specimen comments: Clean [id number] 17:59:00* Test Item Value Reference Range Comments LIPASE (test code=LIP) 140 Units/L 65.0-230.0 Specimen comments: Clean [id number] 17:59:00* Test Item Value Reference Range Comments TROPONIN-I (test code=TROPI) <0.02 NG/ML 0.00-0.06 REFERENCE RANGE TROPONIN I HEALTHY INDIVIDUALS: <0.06 ng/mL R/O ISCHEMIA: 0.07 - 0.60 ng/mL CUT-OFF RANGE FOR AMI: 0.60 - 1.5 ng/mL Specimen comments: Clean CatchBASIC METABOLIC [id number] 17:50:00* Test Item Value Reference Range Comments SODIUM (test code=NA) 142 mmol/l 134.0-147.0 POTASSIUM (test code=K) 4.4 mmol/L 3.6-5.2 CHLORIDE (test code=CL) 105 mmol/l 98.0-107.0 CARBON DIOXIDE (test code=CO2) 27.0 mmol/l 21.0-33.0 ANION GAP (test code=GAP) 14.4 0-20 GLUCOSE (test code=GLU) mg/dl 70.0-110.0 BLOOD UREA NITROGEN (test code=BUN) mg/dl 7.0-18.0 CREATININE (test code=CREAT) mg/dL 0.60-1.30 GFR NON BLACK (test code=GFRNONBLACK) mL/min 80-90 GFR BLACK (test code=GFRBLACK) mL/min 97-109 CALCIUM (test code=CA) mg/dl 8.0-10.5 Specimen comments: Clean CatchHEPATIC FUNCTION PANEL [id number] 17:50:00* Test Item Value Reference Range Comments TOTAL PROTEIN (test code=PROT) gm/dL 6.4-8.2 ALBUMIN (test code=ALB) gm/dl 3.2-4.7 BILIRUBIN TOTAL (test code=BILT) mg/dl 0.0-1.0 BILIRUBIN DIRECT (test code=BILD) mg/dl 0.0-0.3 SGOT/AST (test code=AST) Units/L 15.0-37.0 SGPT/ALT (test code=ALT) Units/L 12.0-78.0 ALKALINE PHOSPHATASE TOTAL (test code=ALKP) Units/L 50.0-136.0 Specimen comments: Clean [id number] 17:50:00* Test Item Value Reference Range Comments LIPASE (test code=LIP) Units/L 65.0-230.0 Specimen comments: Clean [id number] 17:50:00* Test Item Value Reference Range Comments TROPONIN-I (test code=TROPI) NG/ML 0.00-0.06 Specimen comments: Clean CatchPROTHROMBIN [id number] 17:45:00* Test Item Value Reference Range Comments PROTHROMBIN TIME PATIENT (test code=PTP) 11.2 SECONDS 9.9-12.8 INTERNATIONAL NORMAL RATIO (test code=INR) 1.0 0.89-1.14 THE INR IS TO BE USED ONLY FOR MONITORING ORAL ANTICOAGULANTTHERAPY. THE FOLLOWING ARE SUGGESTED RANGES FROM THEAMERICAN COLLEGE OF CHEST PHYSICIANS:INDICATION INR VALUEPROPHYLAXIS OF VENOUS THROMBOSIS (ORTHOPEDIC SURGERY) 2.0 - 3.0PROPHYLAXIS OF VENOUS THROMBOSIS (OTHER THAN HIGH-RISK SURGERY) 2.0 - 3.0TREATMENT OF DEEP VEIN THROMBOSIS OR PULMONARY EMBOLISM 2.0 - 3.0PREVENTION OF SYSTEMIC EMBOLISM TISSUE HEART VALVES 2.0 - 3.0 ACUTE MYOCARDIAL INFARCTION (TO PREVENT SYSTEMIC EMBOLISM) 2.0 - 3.0 ACUTE MYOCARDIAL INFARCTION (TO PREVENT RECURRENT INFARCT) 2.5 - 3.0 VALVULAR HEART DISEASE 2.0 - 3.0 ATRIAL FIBRILATION 2.0 - 3.0BILEAFLET MECHANICAL VALVE IN AORTIC POSITION 2.0 - 3.0MECHANICAL PROSTHETIC VALVES (HIGH RISK) 2.5 - 3.5PRESENCE OF LUPUS ANTICOAGULANT OR ANTIPHOSPHOLIPID ANTIBODIES 2.5 - 3.5 Specimen comments: Clean CatchIs patient on anticoagulants? NTHROMBOPLASTIN TIME [id number] 17:45:00* Test Item Value Reference Range Comments THROMBOPLASTIN TIME PARTIAL (test code=PTT) 31.10 SECONDS 25.86-36.07 [facility] Therapeutic Range - APTT of 55.8-85.4 secondscorrelates with plasma heparin concentration of 0.2-0.4 u/mL New range effective - 07/08/2016 Specimen comments: Clean CatchIs patient on anticoagulants? NURINALYSIS COMPLETE 2019-07-22 17:42:00* Test Item Value Reference Range Comments UA COLOR (test code=COLU) YELLOW UA APPEARANCE (test code=APPU) SLHZY UA GLUCOSE DIPSTICK (test code=DGLUU) NORMAL mg/dl NORMAL UA BILIRUBIN DIPSTICK (test code=BILU) NEGATIVE mg/dL NEGATIVE UA KETONE DIPSTICK (test code=KETU) NEGATIVE mg/dl NEGATIVE UA SPECIFIC GRAVITY (test code=SGU) 1.025 1.000-1.030 UA BLOOD DIPSTICK (test code=MICHELLE) 150 Lit/micL Lit/micL NEGATIVE UA PH DIPSTICK (test code=MARQUIS) 5.0 5.0-9.0 UA PROTEIN DIPSTICK (test code=PROU) 100 mg/dl NEGATIVE UA UROBILINIOGEN DIPSTICK (test code=URO) NORMAL mg/dl NORMAL UA NITRITE DIPSTICK (test code=JOYCE) NEGATIVE NEGATIVE UA LEUKOCYTE ESTERASE DIPSTICK (test code=LEUU) 500 Libby/micL Libby/micL NEGATIVE UA WBC (test code=WBCU) 30-40 WBC/HPF NONE UA RBC (test code=RBCU) 1-3 RBC/HPF 0-3 UA EPITHELIAL CELLS (test code=EPIU) 1-3 EPI/HPF 0-3 UA BACTERIA (test code=BACU) MANY NONE CBC W/AUTO [id number] 17:39:00* Test Item Value Reference Range Comments WHITE BLOOD CELL (test code=WBC) 11.2 K/mm3 4.5-11.0 RED BLOOD CELL (test code=RBC) 3.98 M/mm3 3.80-5.20 HEMOGLOBIN (test code=HGB) 12.5 gm/dL 12.0-16.0 HEMATOCRIT (test code=HCT) 37.1 % 36.0-48.0 MEAN CELL VOLUME (test code=MCV) 93.2 UM3 82.0-99.0 MEAN CELL HGB (test code=MCH) 31.4 UUG 25.5-32.5 MEAN CELL HGB CONCETRATION (test code=MCHC) 33.7 gm/dL 29.0-35.5 RED CELL DISTRIBUTION WIDTH (test code=RDW) 11.7 % 11.5-15.0 RED CELL DISTRIBUTION WIDTH SD (test code=RDW-SD) 39.8 fL 34.8-50.2 PLATELET COUNT (test code=PLT) 240 K/mm3 150-400 MEAN PLATELET VOLUME (test code=MPV) 10.4 fl 7.4-10.4 NEUTROPHIL % (test code=NT%) 78.0 % 49.0-76.0 IMMATURE GRANULOCYTE % (test code=IG%) 0.4 % 0.0-0.4 LYMPHOCYTE % (test code=LY%) 14.5 % 23.0-38.0 MONOCYTE % (test code=MO%) 5.4 % 1.0-10.0 EOSINOPHIL % (test code=EO%) 1.3 % 1.0-5.0 BASOPHIL % (test code=BA%) 0.4 % 0.0-1.0 NEUTROPHIL # (test code=NT#) 8.7 K/mm3 2.4-6.3 IMMATURE GRANULOCYTE # (test code=IG#) 0.05 x10 3/uL 0.00-0.07 LYMPHOCYTE # (test code=LY#) 1.6 K/mm3 1.2-4.0 MONOCYTE # (test code=MO#) 0.6 K/mm3 0.0-0.6 EOSINOPHIL # (test code=EO#) 0.2 K/MM3 0.0-0.7 BASOPHIL # (test code=BA#) 0.1 K/mm3 0.0-0.2 URINALYSIS [id number] 17:38:00* Test Item Value Reference Range Comments UA COLOR (test code=COLU) UA APPEARANCE (test code=APPU) UA GLUCOSE DIPSTICK (test code=DGLUU) NORMAL mg/dl NORMAL UA BILIRUBIN DIPSTICK (test code=BILU) NEGATIVE mg/dL NEGATIVE UA KETONE DIPSTICK (test code=KETU) NEGATIVE mg/dl NEGATIVE UA SPECIFIC GRAVITY (test code=SGU) 1.025 1.000-1.030 UA BLOOD DIPSTICK (test code=MICHELLE) 150 Lit/micL Lit/micL NEGATIVE UA PH DIPSTICK (test code=MARQUIS) 5.0 5.0-9.0 UA PROTEIN DIPSTICK (test code=PROU) 100 mg/dl NEGATIVE UA UROBILINIOGEN DIPSTICK (test code=URO) NORMAL mg/dl NORMAL UA NITRITE DIPSTICK (test code=JOYCE) NEGATIVE NEGATIVE UA LEUKOCYTE ESTERASE DIPSTICK (test code=LEUU) 500 Libby/micL Libby/micL NEGATIVE UA WBC (test code=WBCU) WBC/HPF NONE UA RBC (test code=RBCU) RBC/HPF 0-3 UA EPITHELIAL CELLS (test code=EPIU) EPI/HPF 0-3 UA BACTERIA (test code=BACU) NONE - XR ABDOMEN 1 [id number] 10:37:00 FAX: Nilay Kuhn MD [phone] [place]: St: [facility] FAX: Julio C Poe MD [phone] Name: HÉCTOR GUZMAN [facility] : 1955 Age/S: 64/F [address] [facility] Unit #: [id number] [place]: [place], [place]: [place] [address] Acct: [id number] Dis Date: Status: REG CLI PHONE #: [phone] Exam Date: 06/15/2019 1028 FAX #: [phone] Reason: HX. OF KIDNEY STONES. ..... EXAMS: CPT CODE: [id number] XR ABDOMEN 1 V 10466 CLINICAL HISTORY: Kidney stone history. - XR ABDO MEN 1 V COMPARISON: CT from February 08, 2019. A st udy of the abdomen shows a normal gas pattern. No unusual calcifications a re seen in the outline of the kidneys or in the pathway of the ureters.. The previously noted right renal calculus not appreciated. Cholecystectom y clips. Stool content appears to be appropriate. The osseo us structures are well mineralized. IMPRESSION: No new calculi s een since January,. No evidence of bowel obstruction. Normal g as pattern. Location: U19 at 1037 Reported and signed by: Niraj Aguilar M.D. CC: Nilay Babb MD; Julio C Darden MD Technologist: BRET MARCUS [facility] Date/Time/By: 06/15/2019 (1037) : By: [facility] PAGE 1 Signed Report FAX: Nilay Kuhn MD [phone] [place]: St: REG FAX: Julio C Poe MD [phone] Name: HÉCTOR GUZMAN [facility] : 1955 Age/S: 64/F [address] [facility] [place] Unit #: [id number] [place]: [place], [place]: [place] [address] Acct: [id number] Dis Date: Status: REG CLI PHONE #: [phone] Exam Date: 06/15/2019 1028 FAX #: [phone] Reason: HX. OF KIDNEY STONES.. .... EXAMS: CPT CODE: [id number] XR ABDOMEN 1 V 48370 <Continued> Orig Print D/T: S: 06/15/2019 (1046) PAGE 2 Signed Report - XR CYSTOURETHRO [id number] 09:21:00 FAX: Nilay Kuhn MD [phone] [place]: St: REG FAX: Julio C Poe MD [phone] Name: HÉCTOR GUZMAN [facility] : 1955 Age/S: 63/F [address] [facility] [place] Unit #: [id number] Loc: [place], [place]: [place] [address] Acct: [id number] Dis Date: Status: REG [facility] PHONE #: [phone] Exam Date: 02/19/2019729 FAX #: [phone] Reason: RT RETROGRADE,W/LASER EXAMS: CPT CODE: [id number] XR CYSTOURETHRO RETRO [id number] REASON FOR EXAM: Stone ablation with laser right kidney. Right retrograde pyelogram. Fluoroscopy time 57 seconds, total dose 8.99 mGy. The renal pelvis is opacified slightly with con trast. A surgical wire is in the renal pelvis. A ureteroscope is seen an d positioned adjacent to the stone. No extravasation of cont rast was seen. IMPRESSION: Laser treatment of the central right renal calculus. No extravasation of contrast from the pyelogra m was observed. Location: U19 at 0921 Reported and si gned by: Niraj Aguilar M.D. CC: Nilay Babb MD; Salazar MD Technologist: GEORGE GREGORY Trnsdrd Date/Time/By: 02/19/2019 (0921) : By: [facility] PAGE 1 Signed Report FAX: Nilay Kuhn MD [phone] [place]: St: REG FAX: Julio C Peo MD [phone] Name: HÉCTOR GUZMAN [facility] : 1955 Age/S: 63/F [address] [facility] Unit #: [id number] [place]: [place] [address] Acct: [id number] Dis Date: Status: REG [facility] PHONE #: [phone] Exam Date: 30 FAX #: [phone] Reason: RT RETROGRADE,W/L ASER EXAMS: CPT CODE: [id number] XR CYSTOURETHRO RETRO [id number] <Continued> Orig Print D/T: S: 02/19/2019 (0925) PAGE 2 Signed Report [id number] 05:56:00* Test Item Value Reference Range Comments GLUBED (test code=GLUBED) 100 mg/dL 70-110 [id number] 15:38:00* Test Item Value Reference Range Comments GLUBED (test code=GLUBED) 99 mg/dL 70-110 [id number] 11:37:00* Test Item Value Reference Range Comments GLUBED (test code=GLUBED) 114 mg/dL 70-110 BASIC METABOLIC [id number] 08:29:00* Test Item Value Reference Range Comments SODIUM (test code=NA) 139 mmol/l 134.0-147.0 POTASSIUM (test code=K) 3.3 mmol/L 3.6-5.2 CHLORIDE (test code=CL) 109 mmol/l 98.0-107.0 CARBON DIOXIDE (test code=CO2) 19.4 mmol/l 21.0-33.0 ANION GAP (test code=GAP) 13.9 0-20 GLUCOSE (test code=GLU) 84 mg/dl 70.0-110.0 BLOOD UREA NITROGEN (test code=BUN) 22 mg/dl 7.0-18.0 CREATININE (test code=CREAT) 1.48 mg/dL 0.60-1.30 GFR NON BLACK (test code=GFRNONBLACK) 38 mL/min 80-90 GFR BLACK (test code=GFRBLACK) 46 mL/min 97-109 CALCIUM (test code=CA) 8.3 mg/dl 8.0-10.5 CBC W/AUTO [id number] 08:18:00* Test Item Value Reference Range Comments WHITE BLOOD CELL (test code=WBC) 10.2 K/mm3 4.5-11.0 RED BLOOD CELL (test code=RBC) 3.16 M/mm3 3.80-5.20 HEMOGLOBIN (test code=HGB) 9.7 gm/dL 12.0-16.0 HEMATOCRIT (test code=HCT) 28.6 % 36.0-48.0 MEAN CELL VOLUME (test code=MCV) 90.5 UM3 82.0-99.0 MEAN CELL HGB (test code=MCH) 30.7 UUG 25.5-32.5 MEAN CELL HGB CONCETRATION (test code=MCHC) 33.9 gm/dL 29.0-35.5 RED CELL DISTRIBUTION WIDTH (test code=RDW) 12.9 % 11.5-15.0 RED CELL DISTRIBUTION WIDTH SD (test code=RDW-SD) 42.7 fL 34.8-50.2 PLATELET COUNT (test code=PLT) 160 K/mm3 150-400 MEAN PLATELET VOLUME (test code=MPV) 10.9 fl 7.4-10.4 NEUTROPHIL % (test code=NT%) 73.7 % 49.0-76.0 IMMATURE GRANULOCYTE % (test code=IG%) 0.6 % 0.0-0.4 LYMPHOCYTE % (test code=LY%) 12.4 % 23.0-38.0 MONOCYTE % (test code=MO%) 11.6 % 1.0-10.0 EOSINOPHIL % (test code=EO%) 1.1 % 1.0-5.0 BASOPHIL % (test code=BA%) 0.6 % 0.0-1.0 NEUTROPHIL # (test code=NT#) 7.5 K/mm3 2.4-6.3 IMMATURE GRANULOCYTE # (test code=IG#) 0.06 x10 3/uL 0.00-0.07 LYMPHOCYTE # (test code=LY#) 1.3 K/mm3 1.2-4.0 MONOCYTE # (test code=MO#) 1.2 K/mm3 0.0-0.6 EOSINOPHIL # (test code=EO#) 0.1 K/MM3 0.0-0.7 BASOPHIL # (test code=BA#) 0.1 K/mm3 0.0-0.2 [id number] 06:55:00* Test Item Value Reference Range Comments GLUBED (test code=GLUBED) 86 mg/dL 70-110 [id number] 02:10:00* Test Item Value Reference Range Comments GLUBED (test code=GLUBED) 106 mg/dL 70-110 CBC W/AUTO [id number] 07:12:00* Test Item Value Reference Range Comments WHITE BLOOD CELL (test code=WBC) 12.1 K/mm3 4.5-11.0 RED BLOOD CELL (test code=RBC) 3.33 M/mm3 3.80-5.20 HEMOGLOBIN (test code=HGB) 10.3 gm/dL 12.0-16.0 HEMATOCRIT (test code=HCT) 31.4 % 36.0-48.0 MEAN CELL VOLUME (test code=MCV) 94.3 UM3 82.0-99.0 MEAN CELL HGB (test code=MCH) 30.9 UUG 25.5-32.5 MEAN CELL HGB CONCETRATION (test code=MCHC) 32.8 gm/dL 29.0-35.5 RED CELL DISTRIBUTION WIDTH (test code=RDW) 13.0 % 11.5-15.0 RED CELL DISTRIBUTION WIDTH SD (test code=RDW-SD) 44.9 fL 34.8-50.2 PLATELET COUNT (test code=PLT) 151 K/mm3 150-400 MEAN PLATELET VOLUME (test code=MPV) 11.3 fl 7.4-10.4 NEUTROPHIL % (test code=NT%) 84.6 % 49.0-76.0 IMMATURE GRANULOCYTE % (test code=IG%) 0.5 % 0.0-0.4 LYMPHOCYTE % (test code=LY%) 7.6 % 23.0-38.0 MONOCYTE % (test code=MO%) 6.1 % 1.0-10.0 EOSINOPHIL % (test code=EO%) 0.7 % 1.0-5.0 BASOPHIL % (test code=BA%) 0.5 % 0.0-1.0 NEUTROPHIL # (test code=NT#) 10.2 K/mm3 2.4-6.3 IMMATURE GRANULOCYTE # (test code=IG#) 0.06 x10 3/uL 0.00-0.07 LYMPHOCYTE # (test code=LY#) 0.9 K/mm3 1.2-4.0 MONOCYTE # (test code=MO#) 0.7 K/mm3 0.0-0.6 EOSINOPHIL # (test code=EO#) 0.1 K/MM3 0.0-0.7 BASOPHIL # (test code=BA#) 0.1 K/mm3 0.0-0.2 BASIC METABOLIC [id number] 07:10:00* Test Item Value Reference Range Comments SODIUM (test code=NA) 139 mmol/l 134.0-147.0 POTASSIUM (test code=K) 3.4 mmol/L 3.6-5.2 CHLORIDE (test code=CL) 109 mmol/l 98.0-107.0 CARBON DIOXIDE (test code=CO2) 16.8 mmol/l 21.0-33.0 ANION GAP (test code=GAP) 16.6 0-20 GLUCOSE (test code=GLU) 75 mg/dl 70.0-110.0 BLOOD UREA NITROGEN (test code=BUN) 31 mg/dl 7.0-18.0 CREATININE (test code=CREAT) 1.89 mg/dL 0.60-1.30 GFR NON BLACK (test code=GFRNONBLACK) 29 mL/min 80-90 GFR BLACK (test code=GFRBLACK) 35 mL/min 97-109 CALCIUM (test code=CA) 8.0 mg/dl 8.0-10.5 NOTIFIED BEREKET PARRA REDRAW. E.LAB.DD 02/10/19 0553.BASIC METABOLIC PANEL 2019-02-09 11:15:00* Test Item Value Reference Range Comments SODIUM (test code=NA) 139 mmol/l 134.0-147.0 POTASSIUM (test code=K) 4.1 mmol/L 3.6-5.2 CHLORIDE (test code=CL) 107 mmol/l 98.0-107.0 CARBON DIOXIDE (test code=CO2) 18.3 mmol/l 21.0-33.0 ANION GAP (test code=GAP) 17.8 0-20 GLUCOSE (test code=GLU) 94 mg/dl 70.0-110.0 BLOOD UREA NITROGEN (test code=BUN) 34 mg/dl 7.0-18.0 CREATININE (test code=CREAT) 2.24 mg/dL 0.60-1.30 GFR NON BLACK (test code=GFRNONBLACK) 24 mL/min 80-90 GFR BLACK (test code=GFRBLACK) 28 mL/min 97-109 CALCIUM (test code=CA) 8.1 mg/dl 8.0-10.5 [id number] 11:15:00* Test Item Value Reference Range Comments HGBA1C% (test code=HGBA1C%) 5.4 %A1C 4.8-6.0 ESTIMATED AVERAGE GLUCOSE (test code=EAG) 108 MG/DL CBC W/AUTO [id number] 10:56:00* Test Item Value Reference Range Comments WHITE BLOOD CELL (test code=WBC) 15.3 K/mm3 4.5-11.0 RED BLOOD CELL (test code=RBC) 3.82 M/mm3 3.80-5.20 HEMOGLOBIN (test code=HGB) 11.7 gm/dL 12.0-16.0 HEMATOCRIT (test code=HCT) 35.8 % 36.0-48.0 MEAN CELL VOLUME (test code=MCV) 93.7 UM3 82.0-99.0 MEAN CELL HGB (test code=MCH) 30.6 UUG 25.5-32.5 MEAN CELL HGB CONCETRATION (test code=MCHC) 32.7 gm/dL 29.0-35.5 RED CELL DISTRIBUTION WIDTH (test code=RDW) 12.6 % 11.5-15.0 RED CELL DISTRIBUTION WIDTH SD (test code=RDW-SD) 43.5 fL 34.8-50.2 PLATELET COUNT (test code=PLT) 151 K/mm3 150-400 MEAN PLATELET VOLUME (test code=MPV) 11.8 fl 7.4-10.4 NEUTROPHIL % (test code=NT%) 89.0 % 49.0-76.0 IMMATURE GRANULOCYTE % (test code=IG%) 0.7 % 0.0-0.4 LYMPHOCYTE % (test code=LY%) 5.4 % 23.0-38.0 MONOCYTE % (test code=MO%) 3.9 % 1.0-10.0 EOSINOPHIL % (test code=EO%) 0.3 % 1.0-5.0 BASOPHIL % (test code=BA%) 0.7 % 0.0-1.0 NEUTROPHIL # (test code=NT#) 13.7 K/mm3 2.4-6.3 IMMATURE GRANULOCYTE # (test code=IG#) 0.10 x10 3/uL 0.00-0.07 LYMPHOCYTE # (test code=LY#) 0.8 K/mm3 1.2-4.0 MONOCYTE # (test code=MO#) 0.6 K/mm3 0.0-0.6 EOSINOPHIL # (test code=EO#) 0.0 K/MM3 0.0-0.7 BASOPHIL # (test code=BA#) 0.1 K/mm3 0.0-0.2 02/09/19 0939.- XR CYSTOURETHRO [id number] 08:44:00 FAX: Nilay Kuhn MD [phone] [place]: St: [facility] FAX: Julio C Poe MD [phone] FAX: [place] --------- Name: HÉCTOR GUZMAN [facility] : 1955 Age/S: 63/F [address] [facility] it #: [id number] Loc: [facility] [place], [place]: [place] [id number] Acct: [id number] Dis Date: Status: ADM IN PH ONE #: [phone] Exam Date: 02/09/2019 08 FAX #: [phone] Reason: BILATERAL RETROGRADES AND RT STENT PLACEMENT EXAMS: CPT CODE: [id number] XR CYSTOURETHRO RETRO [id number] REASON FOR EXA M: Infection, pyelonephritis Retrograde pyelogram. F luoroscopy time 36 seconds, total dose 6.59 mGy. Bilateral retrogr joseph pyelogram was performed during cystoscopy. Injection of the right ure ter shows a filling defect at the renal pelvis levels are present in the s tone seen on recent CT. A right ureteral stent is in place on the last fi lm. The left ureter was evaluated as well, failure show any strict ures or suspicious filling defects for stones. No mass effect on the collecting structures IMPRESSION: Right ureteral stent in plac e. Right renal pelvic calculus. No ureteral disease documented. Location: 9 at 0844 Reported and signed by: Niraj collins M.D. CC: Nilay Babb MD; Julio C Darden MD; Frances husain MD Technologist: GEORGE Lo scrd Date/Time/By: 02/09/2019 (0844) : By: [facility] PAGE 1 Signed Report FAX: Nilay Kuhn MD [phone] [place]: St: ADM FAX: Julio C Poe MD [phone] FAX: [place] [phone] Name: JOSH MCNEALDA HALEY [facility] : [birth year] Age/S: 63/F [address] [facility] [place] Unit #: [id number] Loc: E.[facility]01 [place], [place]: [place] [id number] Acct: [id number] Dis Date: Status: ADM IN PHONE #: [phone] Exam Date: 02/09/2019824 FAX #: [phone] Reason: BILATERAL RETROGRADES AND RT STENT PLACEMENT EXAMS: CPT CODE: [id number] XR CYSTOURETHRO RETRO [id number] <Continued> Orig Print D/T: S: 02/09/2019 (0847) PAGE 2 Signed Report PROCALCITONIN (PCT)2019-02-09 03:56:00* Test Item Value Reference Range Comments PROCALCITONIN (PCT) (test code=PROCAL) 13.18 ng/mL 0.00-0.05 PROCALCITONIN (PCT) NORMAL RANGE (ADULT): <0.05 NG/ML. * a concentration <0.5 ng/mL represents a low risk of severe sepsis and/or septic shock.* a concentration >2 ng/mL represents a high risk of severe sepsis and/or septic shock.Nevertheless, concentrations <0.5 ng/mL do not exclude aninfection, on account of localized infections (withoutsystemic signs) which can be associated with such lowconcentrations, or a systemic infection in its initialstages (< 6 hours). Furthermore, increased procalcitonincan occur without infection. PCT concentrations between 0.5and 2.0 ng/mL should be interpreted taking into account thepatient's history. It is recommended to retest PCT within6-24 hours if any concentrations <2 ng/mL are obtained. PROCALCITONIN (PCT)2019-02-09 03:45:00* Test Item Value Reference Range Comments PROCALCITONIN (PCT) (test code=PROCAL) 13.18 ng/mL 0.00-0.05 PROCALCITONIN (PCT) NORMAL RANGE (ADULT): <0.05 NG/ML. * a concentration <0.5 ng/mL represents a low risk of severe sepsis and/or septic shock.* a concentration >2 ng/mL represents a high risk of severe sepsis and/or septic shock.Nevertheless, concentrations <0.5 ng/mL do not exclude aninfection, on account of localized infections (withoutsystemic signs) which can be associated with such lowconcentrations, or a systemic infection in its initialstages (< 6 hours). Furthermore, increased procalcitonincan occur without infection. PCT concentrations between 0.5and 2.0 ng/mL should be interpreted taking into account thepatient's history. It is recommended to retest PCT within6-24 hours if any concentrations <2 ng/mL are obtained. ARTERIAL BLOOD [id number] 16:08:00* Test Item Value Reference Range Comments ARTERIAL BLOOD GAS PH (test code=PHA) 7.340 7.350-7.450 ARTERIAL BLOOD GAS PCO2 (test code=PCO2A) 28.6 mmHg 35.0-45.0 ARTERIAL BLOOD GAS PO2 (test code=PO2A) 80.4 mmHg >80.0 BICARBONATE TOTAL HCO3 (test code=HCO3) 15.1 MMOL/L 22.0-26.0 BASE EXCESS (test code=EDGARDO) -9.3 MMOL/L -4.0-4.0 ABG O2 SATURATION (test code=SATA) 95.6 % 92.0-99.0 FIO2 (test code=FIO2A) 21.0 ABG SITE (test code=SITEA) LR ALLENS TEST (test code=ALLENS) Yes TOTAL HGB (test code=THB) 12.5 g/dL 12.0-16.0 CARBOXYHEMOGLOBIN (test code=HOHGBT) 2.0 % THgb 0.0-1.5 METHEMOGLOBIN (test code=METHGB) 0.3 % 0.0-1.5 NORMAL <2.0POTENTIALLY TOXIC >20.0 LACTIC ACID [id number] 15:04:00* Test Item Value Reference Range Comments LACTIC ACID REPEAT (test code=LACTR) 2.8 mmol/L 0.4-2.0 URINALYSIS [id number] 14:38:00* Test Item Value Reference Range Comments UA COLOR (test code=COLU) YELLOW UA APPEARANCE (test code=APPU) HAZY UA GLUCOSE DIPSTICK (test code=DGLUU) NORMAL mg/dl NORMAL UA BILIRUBIN DIPSTICK (test code=BILU) NEGATIVE mg/dL NEGATIVE UA KETONE DIPSTICK (test code=KETU) NEGATIVE mg/dl NEGATIVE UA SPECIFIC GRAVITY (test code=SGU) 1.010 1.000-1.030 UA BLOOD DIPSTICK (test code=MICHELLE) 150 Lit/micL Lit/micL NEGATIVE UA PH DIPSTICK (test code=MARQUIS) 6.0 5.0-9.0 UA PROTEIN DIPSTICK (test code=PROU) 100 mg/dl NEGATIVE UA UROBILINIOGEN DIPSTICK (test code=URO) NORMAL mg/dl NORMAL UA NITRITE DIPSTICK (test code=JOYCE) NEGATIVE NEGATIVE UA LEUKOCYTE ESTERASE DIPSTICK (test code=LEUU) 500 Libby/micL Libby/micL NEGATIVE UA WBC (test code=WBCU) >50 WBC/HPF NONE UA RBC (test code=RBCU) 1-3 RBC/HPF 0-3 UA EPITHELIAL CELLS (test code=EPIU) 0-3 EPI/HPF 0-3 UA BACTERIA (test code=BACU) MANY NONE Specimen comments: Clean CatchURINALYSIS [id number] 14:32:00* Test Item Value Reference Range Comments UA COLOR (test code=COLU) UA APPEARANCE (test code=APPU) UA GLUCOSE DIPSTICK (test code=DGLUU) NORMAL mg/dl NORMAL UA BILIRUBIN DIPSTICK (test code=BILU) NEGATIVE mg/dL NEGATIVE UA KETONE DIPSTICK (test code=KETU) NEGATIVE mg/dl NEGATIVE UA SPECIFIC GRAVITY (test code=SGU) 1.010 1.000-1.030 UA BLOOD DIPSTICK (test code=MICHELLE) 150 Lit/micL Lit/micL NEGATIVE UA PH DIPSTICK (test code=MARQUIS) 6.0 5.0-9.0 UA PROTEIN DIPSTICK (test code=PROU) 100 mg/dl NEGATIVE UA UROBILINIOGEN DIPSTICK (test code=URO) NORMAL mg/dl NORMAL UA NITRITE DIPSTICK (test code=JOYCE) NEGATIVE NEGATIVE UA LEUKOCYTE ESTERASE DIPSTICK (test code=LEUU) 500 Libby/micL Libby/micL NEGATIVE UA WBC (test code=WBCU) WBC/HPF NONE UA RBC (test code=RBCU) RBC/HPF 0-3 UA EPITHELIAL CELLS (test code=EPIU) EPI/HPF 0-3 UA BACTERIA (test code=BACU) NONE Specimen comments: Clean [id number] 14:25:00* Test Item Value Reference Range Comments TROPONIN-I (test code=TROPI) <0.02 NG/ML 0.00-0.06 REFERENCE RANGE TROPONIN I HEALTHY INDIVIDUALS: <0.06 ng/mL R/O ISCHEMIA: 0.07 - 0.60 ng/mL CUT-OFF RANGE FOR AMI: 0.60 - 1.5 ng/mL LACTIC [id number] 13:37:00* Test Item Value Reference Range Comments LACTIC ACID (test code=LACT) 3.1 MMOL/L 0.4-2.0 B-TYPE NATRIURETIC [id number] 13:35:00* Test Item Value Reference Range Comments B-TYPE NATRIURETIC PEPTIDE (test code=BNP) 141 PG/ML 5-100 - CT ABD PELVIS W/O [id number] 12:51:00 FAX: Julio C Poe MD [phone] [place]: St: PRE FAX: Higinio Rios MD [phone] Name: HÉCTOR GUZMAN [facility] : 1955 Age/S: 63/F [address] [facility] Unit: [id number] Loc: [address] Phys: [place] [id number] Acct: [id number] Dis Date: Status: PRE ER PHONE #: [phone] Exam Date: 02/08/2019 1220 FAX #: [phone] Reason: flank pain EXAMS: CPT CODE: [id number] CT ABD PELVIS W/O CONT 78838 EXAM: - CT ABD PELVIS W/O CONT HISTORY: flank pain Location code:C3 TECHNIQUE: Contrast - No IV contrast was given. No oral contrast was given Noncontrast phase - abdomen and pelvis including all of kidneys Reconstructions - coronal and sagittal planes Automated exposure reduction (Auto mA/Smart mA) was uti lized in compliance with ACR Image Wisely with DLP of 501.47 mGy-cm. COMPARISON: None FINDINGS: Statements: Lack of intr avenous contrast compromises evaluation of abdominopelvic organs and vascu lature. Lack of oral contrast compromises evaluation of bowel. Thoracic: Included images of the lower chest demonstrate no abnormalit ies. Hepatobiliary: The liver is normal without focal lesion. Stat us post cholecystectomy. No biliary dilation. Pancreas: Norm al. Spleen: Normal. Adrenals: Normal. Genitourinary: There is a 10 x 6 mm calculus in the right renal pelvis wi th additional 1 x 1 mm calculus in lower pole calyx of the right kidney. There is inflammatory change surrounding the right kidney with minimal hyd ronephrosis. No renal or ureteral calculi seen on the left. Evaluation of the bladder is limited, but no obvious bladder abnormality is present. Gastrointestinal: No bowel obstruction or perienteric inflammation. The appendix is normal. PAGE 1 Signed R eport (CONTINUED) FAX: Julio C Poe MD [place]: St: PRE FAX: Higinio Rios MD [phone] --- Na me: THALIAHOLLYHÉCTOR HALEY [facility] : Age/S: 63/F [address] [facility] Unit: [id number] Loc: E.ERS2 [place], [place]: [place] [id number] Acct: [id number] Dis D ate: Status: PRE ER PHONE #: [phone] Exam Date: 02/08/2019 1220 FAX #: [phone] Reason: flank pain EXAMS: CPT CODE: [id number] CT ABD PELVIS W /O CONT 09224 <Continued> Vascular: Atherosclerotic calcifications are seen within the aorta and branch vessels. Lymphatics: No enlarged lymph nodes by CT size criteria. Bones/Soft Tissues: No acute osseous findings. No ventral hernias. Peritoneum/Other: No extraluminal air. No extraluminal fluid. IMPRESSION: 1. There is a 10 x 6 mm calculus in the right renal pelvis with minimal right-sided obstructive uropathy. Inflammatory change about the right kidney appears more pronounced than what would be seen with degree of hydronephrosis and superimposed infection is not excluded. Additional 1 mm calculus about a lower pole calyx on the right is seen. at 1251 Reported and signed by: Randy Colin M.D. CC: Julio C Darden MD; Higinio Rios MD Technologist: MANSI PECK Trnscrd Dt/Tm: 02/08/2019 (2922) [email or web address] Orig Print D/T: S: 02/08/2019 (3170 PAGE 2 Signed Report BASIC METABOLIC PANEL 2019-02-08 12:42:00* Test Item Value Reference Range Comments SODIUM (test code=NA) 135 mmol/l 134.0-147.0 POTASSIUM (test code=K) 4.0 mmol/L 3.6-5.2 CHLORIDE (test code=CL) 98 mmol/l 98.0-107.0 CARBON DIOXIDE (test code=CO2) 23.8 mmol/l 21.0-33.0 ANION GAP (test code=GAP) 17.2 0-20 GLUCOSE (test code=GLU) 171 mg/dl 70.0-110.0 BLOOD UREA NITROGEN (test code=BUN) 39 mg/dl 7.0-18.0 CREATININE (test code=CREAT) 3.15 mg/dL 0.60-1.30 GFR NON BLACK (test code=GFRNONBLACK) 16 mL/min 80-90 GFR BLACK (test code=GFRBLACK) 19 mL/min 97-109 CALCIUM (test code=CA) 9.2 mg/dl 8.0-10.5 HEPATIC FUNCTION PANEL [id number] 12:42:00* Test Item Value Reference Range Comments TOTAL PROTEIN (test code=PROT) 7.9 gm/dL 6.4-8.2 ALBUMIN (test code=ALB) 3.3 gm/dl 3.2-4.7 BILIRUBIN TOTAL (test code=BILT) 0.6 mg/dl 0.0-1.0 BILIRUBIN DIRECT (test code=BILD) 0.3 mg/dl 0.0-0.3 SGOT/AST (test code=AST) 23 Units/L 15.0-37.0 SGPT/ALT (test code=ALT) 26 Units/L 12.0-78.0 ALKALINE PHOSPHATASE TOTAL (test code=ALKP) 80 Units/L 50.0-136.0 [id number] 12:42:00* Test Item Value Reference Range Comments LIPASE (test code=LIP) 54 Units/L 65.0-230.0 BASIC METABOLIC [id number] 12:35:00* Test Item Value Reference Range Comments SODIUM (test code=NA) 135 mmol/l 134.0-147.0 POTASSIUM (test code=K) 4.0 mmol/L 3.6-5.2 CHLORIDE (test code=CL) 98 mmol/l 98.0-107.0 CARBON DIOXIDE (test code=CO2) 23.8 mmol/l 21.0-33.0 ANION GAP (test code=GAP) 17.2 0-20 GLUCOSE (test code=GLU) mg/dl 70.0-110.0 BLOOD UREA NITROGEN (test code=BUN) mg/dl 7.0-18.0 CREATININE (test code=CREAT) mg/dL 0.60-1.30 GFR NON BLACK (test code=GFRNONBLACK) mL/min 80-90 GFR BLACK (test code=GFRBLACK) mL/min 97-109 CALCIUM (test code=CA) mg/dl 8.0-10.5 HEPATIC FUNCTION PANEL [id number] 12:35:00* Test Item Value Reference Range Comments TOTAL PROTEIN (test code=PROT) gm/dL 6.4-8.2 ALBUMIN (test code=ALB) gm/dl 3.2-4.7 BILIRUBIN TOTAL (test code=BILT) mg/dl 0.0-1.0 BILIRUBIN DIRECT (test code=BILD) mg/dl 0.0-0.3 SGOT/AST (test code=AST) Units/L 15.0-37.0 SGPT/ALT (test code=ALT) Units/L 12.0-78.0 ALKALINE PHOSPHATASE TOTAL (test code=ALKP) Units/L 50.0-136.0 [id number] 12:35:00* Test Item Value Reference Range Comments LIPASE (test code=LIP) Units/L 65.0-230.0 PROTHROMBIN [id number] 12:32:00* Test Item Value Reference Range Comments PROTHROMBIN TIME PATIENT (test code=PTP) 15.1 SECONDS 9.9-12.8 INTERNATIONAL NORMAL RATIO (test code=INR) 1.3 0.89-1.14 THE INR IS TO BE USED ONLY FOR MONITORING ORAL ANTICOAGULANTTHERAPY. THE FOLLOWING ARE SUGGESTED RANGES FROM THEAMERICAN COLLEGE OF CHEST PHYSICIANS:INDICATION INR VALUEPROPHYLAXIS OF VENOUS THROMBOSIS (ORTHOPEDIC SURGERY) 2.0 - 3.0PROPHYLAXIS OF VENOUS THROMBOSIS (OTHER THAN HIGH-RISK SURGERY) 2.0 - 3.0TREATMENT OF DEEP VEIN THROMBOSIS OR PULMONARY EMBOLISM 2.0 - 3.0PREVENTION OF SYSTEMIC EMBOLISM TISSUE HEART VALVES 2.0 - 3.0 ACUTE MYOCARDIAL INFARCTION (TO PREVENT SYSTEMIC EMBOLISM) 2.0 - 3.0 ACUTE MYOCARDIAL INFARCTION (TO PREVENT RECURRENT INFARCT) 2.5 - 3.0 VALVULAR HEART DISEASE 2.0 - 3.0 ATRIAL FIBRILATION 2.0 - 3.0BILEAFLET MECHANICAL VALVE IN AORTIC POSITION 2.0 - 3.0MECHANICAL PROSTHETIC VALVES (HIGH RISK) 2.5 - 3.5PRESENCE OF LUPUS ANTICOAGULANT OR ANTIPHOSPHOLIPID ANTIBODIES 2.5 - 3.5 Specimen comments: Clean CatchIs patient on anticoagulants? [facility] W/AUTO DIFF 2019-02-08 12:26:00* Test Item Value Reference Range Comments WHITE BLOOD CELL (test code=WBC) 16.8 K/mm3 4.5-11.0 RED BLOOD CELL (test code=RBC) 4.07 M/mm3 3.80-5.20 HEMOGLOBIN (test code=HGB) 12.6 gm/dL 12.0-16.0 HEMATOCRIT (test code=HCT) 37.7 % 36.0-48.0 MEAN CELL VOLUME (test code=MCV) 92.6 UM3 82.0-99.0 MEAN CELL HGB (test code=MCH) 31.0 UUG 25.5-32.5 MEAN CELL HGB CONCETRATION (test code=MCHC) 33.4 gm/dL 29.0-35.5 RED CELL DISTRIBUTION WIDTH (test code=RDW) 12.1 % 11.5-15.0 RED CELL DISTRIBUTION WIDTH SD (test code=RDW-SD) 41.0 fL 34.8-50.2 PLATELET COUNT (test code=PLT) 206 K/mm3 150-400 MEAN PLATELET VOLUME (test code=MPV) 10.6 fl 7.4-10.4 NEUTROPHIL % (test code=NT%) 92.5 % 49.0-76.0 IMMATURE GRANULOCYTE % (test code=IG%) 0.8 % 0.0-0.4 LYMPHOCYTE % (test code=LY%) 3.6 % 23.0-38.0 MONOCYTE % (test code=MO%) 2.6 % 1.0-10.0 EOSINOPHIL % (test code=EO%) 0.1 % 1.0-5.0 BASOPHIL % (test code=BA%) 0.4 % 0.0-1.0 NEUTROPHIL # (test code=NT#) 15.5 K/mm3 2.4-6.3 IMMATURE GRANULOCYTE # (test code=IG#) 0.14 x10 3/uL 0.00-0.07 LYMPHOCYTE # (test code=LY#) 0.6 K/mm3 1.2-4.0 MONOCYTE # (test code=MO#) 0.4 K/mm3 0.0-0.6 EOSINOPHIL # (test code=EO#) 0.0 K/MM3 0.0-0.7 BASOPHIL # (test code=BA#) 0.1 K/mm3 0.0-0.2 - XR CHEST 2 [id number] 11:42:00 FAX: Abena Arce MD [phone] [place]: St: [facility] FAX: Julio C Poe MD [phone] Name: HÉCTOR GUZMAN [facility] : 1955 Age/S: 63/F [address] [place] [address] Blvd Unit #: [id number] Loc: [place] [address] Phys: Abena Tidwell MD Acct: [id number] Dis Date: Status: REG CLI PHONE #: [phone] Exam Date: 11/20/2018 1103 FAX #: [phone] Reason: R05 COUGH, R09.89 LUNG CRACKLES EXAMS: CPT CODE: [id number] XR CHEST 2 V 75749 CLINICAL HISTORY: R05 COUGH, R09.89 LUNG CRACKLES COMPARISON: NONE PA and lateral films of the chest demonstrate that heart size is normal. Lung newberry are clear. No evidence of pneumonia or congestive failure is seen. Calcified left hilar lymph node is present. Regional skeletal structures are within normal limits. IMPRESSION: No evidence of pneumonia or congestive failure is seen. at 1142 Reported and signed by: Gerson Irene M.D. CC: Jazmin WETZEL; Julio C Darden Technologist: MATEO Navarro) Trnscrd Date/Time/By: 11/20/2018 (8304) : By: Siria Orig Print D/T: S: 11/20/2018 (1992) PAGE 1 Signed Report
[2019-08-05 15:00] VITALS: BP 121/60
--- NOTE | 2019-08-05 17:46 | Operative Report ---
DATE OF PROCEDURE: 08/05/2019 SURGEON: Nilay Loredo MD PREOPERATIVE DIAGNOSES: Right ureteral calculi, right hydronephrosis, and hematuria. POSTOPERATIVE DIAGNOSES: Right ureteral calculi, right hydronephrosis, and hematuria. PROCEDURES: 1. Right-sided ureteroscopy with laser lithotripsy and stent placement (entirely separate procedure for right ureter calculus). 2. Right-sided ureteroscopy, stone extraction (entirely separate procedure with explicit purpose of sending stones for analysis, not required for laser lithotripsy). 3. Supervision of fluoroscopy. 4. Interpretation of retrograde pyelography. INDICATIONS FOR PROCEDURE: Ms. Tanner is a very pleasant 64-year-old female with an obstructing right ureteral calculi, with multiple worsening conditions requiring narcotic pain medicine, severe colic, the risk of renal failure, infection, sepsis, and . She and I had an explicit discussion regarding the fact that this procedure appears to be immediately medically necessary to correct a serious medical condition without immediate performance of the surgery. Ms. Tanner would be at risk for renal failure or other serious adverse medical consequences. After this discussion, she and I further discussed risks, benefits, and alternatives, and she elected to proceed. PROCEDURE IN DETAIL: After informed consent was obtained, the patient was taken to the operative suite, placed in supine on the operating table, underwent general anesthesia by the Anesthesia Service, placed in dorsal lithotomy position and sterilely prepped and draped for cystoscopy. A 21-Serbian cystoscope was inserted per urethra and normal urethra was noted. Panendoscopy of bladder revealed no tumors and no stents. Both ureteral orifices were in normal anatomic location and position and were seen to efflux clear urine. Attempts were made to catheterize the right ureteral orifice, but failed. Ureteroscope was advanced and retrograde pyelogram was performed revealing densely obstructed ureteral calculi. Utilizing 365 micron laser fiber, the stones were obliterated. The ureteroscope was advanced proximally. A basket was then deployed and dragged through ridding the patient of all ureteral calculi. At this time with no other ureteral calculi visualized. Stones extracted with explicit purpose of sending stones for analysis. A ureteral stent was deployed with a coil in renal pelvis and a coil in the bladder. The patient's bladder was drained. She was awakened from anesthesia and transported to recovery room in excellent condition. No untoward effects noted. Supervision of fluoroscopy and interpretation of retrograde pyelography: I was present for the entire procedure and supervised fluoroscopy. There was no radiologist present. Attention was turned towards the right ureteral orifice, which was catheterized. Retrograde pyelogram was performed revealing dense obstruction distally, proximal hydronephrosis, stricture formation secondary to impaction. MD RAJEEV Mathews/MODL /[id number]
== END | disposition home or self-care (01) ==
LOC: OR 11:43
PROVIDERS: ATTEND Urology
DX: N20.1 Calculus of ureter (principal); N13.30 Unspecified hydronephrosis; N13.5 Crossing vessel and stricture of ureter without hydronephrosis; R35.1 Nocturia; N39.0 Urinary tract infection, site not specified; I10 Essential (primary) hypertension; J44.9 Chronic obstructive pulmonary disease, unspecified; M32.9 Systemic lupus erythematosus, unspecified; I48.91 Unspecified atrial fibrillation; E78.5 Hyperlipidemia, unspecified; M06.9 Rheumatoid arthritis, unspecified; E11.9 Type 2 diabetes mellitus without complications; F17.210 Nicotine dependence, cigarettes, uncomplicated; Z88.0 Allergy status to penicillin; Z88.8 Allergy status to other drugs, medicaments and biological substances; Z91.041 Radiographic dye allergy status; Z01.810 Encounter for preprocedural cardiovascular examination; Z01.818 Encounter for other preprocedural examination; Z87.01 Personal history of pneumonia (recurrent); Z84.1 Family history of disorders of kidney and ureter
CPT/HCPCS: 36415 ×2; 52356; 71046; 74018; 74420; 80048; 82948; 85025; 88300; 93005; C1758; C1769; C2617; J1100; J1580; J2001; J2405; J2704; J3010; Q9967

== ENCOUNTER → 2019-09-16 | Day surgery (SDC) | payer OTHER ==
[2019-09-11 10:43] LABS: BASOPHILS # (AUTO) 0.1 (0.0-0.1); BASOPHILS % 0.8 % (0.0-1.0); EOSINOPHILS # (AUTO) 0.3 (0.0-0.4); HEMATOCRIT 37.8 % (34.2-44.1); HEMOGLOBIN 12.7 g/dL (12.0-16.0); LYMPHOCYTES # (AUTO) 3.3 (1.0-3.2); LYMPHOCYTES % 52.9 % (18.0-39.1); MEAN CORPUSCULAR HEMOGLOBIN 31.8 pg (28-32); MEAN CORPUSCULAR HGB CONC 33.6 g/dL (31-35); MEAN CORPUSCULAR VOLUME 94.7 fL (81-99); MONOCYTES # (AUTO) 0.6 (0.2-0.8); NEUTROPHILS % 32.1 % (38.7-80.0); PLATELET COUNT 220 x10e3/uL (140-360); RED BLOOD COUNT 3.99 x10e6/uL (3.6-5.1); RED CELL DISTRIBUTION WIDTH 11.9 % (11.7-14.4)
[2019-09-11 11:21] LABS: ANION GAP 12.9 mmol/L (8-16); CALCIUM 9.7 mg/dL (8.4-10.2); CREATININE, SERUM 1.27 mg/dL (0.57-1.11); POTASSIUM 4.9 mmol/L (3.5-5.1)
[~2019-09-16] MED LIST changes: -B&O 60MG R/S 60 MG SUPP PR ONE; -GENTAMICIN 120MG/NS 100ML 100 ML ONE; +GENTAMICIN 80MG/NS 100 ML 100 ML IV ONE
--- OUTSIDE RECORDS SUMMARY | 2019-09-16 05:50 | XMS REPORT | Summary of Care ---
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 Entrance [address], [address] [place] [address] Allergies Comments Active Allergy Reactions Severity Noted Date Atorvastatin Rash High 03/13/2017 Patient has reaction to swelling in hands after CT 07/23/2018 Iodine And Iodide Swelling 07/24/2018 Containing Products HER BODY TURNS RED BURNING AND ITCHING Niacin Unknown - See 09/01/2010 comments Penicillins Hives, 01/23/2018 Shortness of Breath Kkpynbc-Shk-Uwk Reductase Hives, Other Inhibitors - See comments Varenicline Rash Medium documented as of this encounter (statuses as of 08/19/2019) Medications End Date Status Medication Sig Dispensed [...] nonspecific skin (two) times eruption daily. Active hydrOXYzine 10 mg Take 1 tablet 90 tablet 1 tabletIndications: by mouth 9 Cutaneous lupus every 8 erythematosus (eight) hours as needed for Itching. Active hydroxychloroquine Take 1 tablet 90 tablet 1 08/18 (PLAQUENIL) 200 mg by mouth 0 tabletIndications: daily. Cutaneous lupus erythematosus, Medication monitoring encounter 08/19/2019 Discontinued (Reorder) hydroxychloroquine Take 1 tablet 90 tablet 1 08/16 (PLAQUENIL) 200 mg by mouth 0 tabletIndications: daily. Cutaneous lupus erythematosus, Medication monitoring encounter documented as of this encounter (statuses as of 08/19/2019) Active Problems Problem Noted Date Microscopic hematuria 07/22/2018 Current smoker 07/22/2018 Exposure to chemical pollution 07/22/2018 History of nephrolithiasis 07/22/2018 documented as of this encounter (statuses as of 08/19/2019) Social History Date Tobacco Use Types Packs/Day [...] Signs Not on filedocumented in this encounter Plan of Treatment Care Team Description Date Type Specialty Higinio Henry MD [id number] [place], [place] [address] 11/17/2019 Office Visit Dermatology Health Maintenance Due Date Last Done Comments HEPATITIS C (HCV) SCREEN 1955 PNEUMOCOCCAL 0-64 YEARS 1961 COMBINED SERIES (1 of 1 - PPSV23) DTaP,Tdap,and Td Vaccines 1968 (1 - Tdap) Breast Cancer Screening 1997 (MAMMOGRAM) COLONOSCOPY 2007 Zoster Recombinant 2007 Vaccine (SHINGRIX) (1 of 2) LUNG CANCER SCREEN: 2012 Recommended for age 55-80 with 30 + pack year history INFLUENZA VACCINE (#1) 2019 01/11/2018 PAP SMEAR 01/23/2021 01/23/2018 documented as of this encounter Results Not on filedocumented in this encounter Visit Diagnoses Diagnosis Cutaneous lupus erythematosus Lupus erythematosus Medication monitoring encounter Encounter for therapeutic drug monitori ng documented in this encounter Insurance Type Payer Benefit Subscriber ID Effective Phone Address Plan / Dates Group [id number] [place]- [place] Present documented as of this encounter
--- OUTSIDE RECORDS SUMMARY | 2019-09-16 05:50 | XMS REPORT | Summary of Care ---
Author Author [facility] - Health Organization [facility] - Health Address Unknown Phone Unavailable Care Team Providers Care Construction Crew Member Name Role Phone Julio C Darden PCP Reason for Visit * Reason Comments Medication Problem Encounter Details Care Team Description Date Type Department Higinio Henry MD [address] [facility] [address] [place] [address] [phone] Medication Problem 08/18/2019 Telephone [facility] Dermato logy, [place] [id number] [facility] Entrance A, [address] [place] [address] Allergies Comments Active Allergy Reactions Severity Noted Date Atorvastatin Rash High 03/13/2017 Patient has reaction to swelling in hands after CT 07/23/2018 Iodine And Iodide Swelling 07/24/2018 Containing Products HER BODY TURNS RED BURNING AND ITCHING Niacin Unknown - See 09/01/2010 comments Penicillins Hives, 01/23/2018 Shortness of Breath Hunzjmz-Avh-Kjz Reductase Hives, Other Inhibitors - See comments Varenicline Rash Medium documented as of this encounter (statuses as of 08/21/2019) Medications End Date Status Medication Sig Dispensed [...] as of this encounter (statuses as of 08/21/2019) Active Problems Problem Noted Date Microscopic hematuria 07/22/2018 Current smoker 07/22/2018 Exposure to chemical pollution 07/22/2018 History of nephrolithiasis 07/22/2018 documented as of this encounter (statuses as of 08/21/2019) Social History Date Tobacco Use Types Packs/Day [...] Specialty Higinio Henry MD [id number] [place], [place] [address] 11/17/2019 Office Visit Dermatology Health Maintenance Due [...] Effective Phone Address Plan / Dates Group [id number] 2006- [place] Present documented as of this encounter
--- OUTSIDE RECORDS SUMMARY | 2019-09-16 05:50 | XMS REPORT | Summary of Care ---
Author Author [facility] - Health Organization 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 Name Role Phone Adelso Julio C PCP Reason for Visit * Reason Comments Rash * (Routine) Referred By Contact Referred To Contact Status Reason Specialty Diagnoses / Procedures Higinio Henry MD [address] [place] [id number] Higinio Henry MD [address] [place] [id number] Authorized [facility] Diagnoses / Dermatology 6mo fu P rocedures DERMATOLOGY CLINIC NOTE FOLLOW-UP VISIT Encounter Details Care Team Description Date Type Department Higinio Henry MD [address] [address] Cutaneous lupus erythematosus (Primary D x); Medication monitoring encounter 08/07/2019 Telemedicine [facility] Dermato logy, Visit [address], [address] [place] [address] Allergies Comments Active Allergy Reactions Severity Noted Date Atorvastatin Rash High 03/13/2017 Patient has reaction to swelling in hands after CT 07/23/2018 Iodine And Iodide Swelling 07/24/2018 Containing Products HER BODY TURNS RED BURNING AND ITCHING Niacin Unknown - See 09/01/2010 comments Penicillins Hives, 01/23/2018 Shortness of Breath Ghxayfe-Uac-Sbx Reductase Hives, Other Inhibitors - See comments Varenicline Rash Medium documented as of this encounter (statuses as of 08/17/2019) Medications End Date Status Medication Sig Dispensed [...] 0.05 % Apply to 150 g 2 01 creamIndications: Rash area(s) 2 9 and nonspecific skin (two) times eruption daily. Active hydrOXYzine 10 mg Take 1 tablet 90 tablet 1 tabletIndications: by mouth 9 Cutaneous lupus every 8 erythematosus (eight) hours as needed for Itching. Active hydroxychloroquine Take 1 tablet 90 tablet 1 08/16 (PLAQUENIL) 200 mg by mouth 0 tabletIndications: daily. Cutaneous lupus erythematosus, Medication monitoring encounter 08/17/2019 Discontinued (Reorder) hydroxychloroquine Take 1 tablet 90 tablet 1 01/15 (PLAQUENIL) 200 mg by mouth 9 tabletIndications: daily. Cutaneous lupus erythematosus, Medication monitoring encounter documented as of this encounter (statuses as of 08/17/2019) Active Problems Problem Noted Date Microscopic hematuria 07/22/2018 Current smoker 07/22/2018 Exposure to chemical pollution 07/22/2018 History of nephrolithiasis 07/22/2018 documented as of this encounter (statuses as of 08/17/2019) Social History Date Tobacco Use Types Packs/Day [...] filedocumented in this encounter Progress Notes * Alexx Weir MD - 08/17/2019 9:00 AM CDT TELEMEDICINE ENCOUNTER Verbal consent obtained from patient Elena Tanner for telehealth services provided below. Provider location: Office; Patient Location: Home Encounter type: Telephone with audio CC: lupus f/u HPI Elena Tanner is a 64 year old female following up via teledermatology for follow-up of lupus.She states her lupus has been mildlly flaring as she recently ran out of her plaquenil, which she takes 200 mg PO daily. She regularly sees an outside [place] [facility] but states she had to miss her most recent appointment due to being hospitalized on the same day. Of note: was recently hospitalized for kidney stones a [facility] Past Medical History: Diagnosis Date Diabetes mellitus High cholesterol Kidney stone 2005 SH: Lives in [place] [address]. Allergies Allergies Allergen Reactions Atorvastatin Rash Varenicline Rash Contrast [Iodine And Iodide Containing Products] Swelling Patient has reaction to swelling in hands after CT 07/23/2018 Niacin Unknown - See comments HER BODY TURNS RED BURNING AND ITCHING Pcn [Penicillins] Hives and Shortness of Breath Ckiuwqn-Fwe-Uut Reductase Inhibitors Hives and Other - See comments Medications Current Outpatient Medications on File Prior to Visit Medication Sig Dispense Refill halobetasol 0.05 % cream Apply to area(s) 2 (two) times daily. 150 g 2 hydroxychloroquine (PLAQUENIL) 200 mg tablet Take 1 tablet by mouth daily. 9 0 tablet 1 hydrOXYzine 10 mg tablet Take 1 tablet by mouth every 8 (eight) hours as nee ded for Itching. 90 tablet 1 mupirocin 2 % ointment Apply to area(s) 3 (three) times daily. 30 g 0 TRULICITY 1.5 mg/0.5 mL PnIj famciclovir 500 [...] file prior to visit. Review of Systems Skin: Itching (-), Pain (-), Rash (+) Heme: Bleeding (-) Physical Exam General: No signs of distress noted over phone. Pulmonary: No increased work of breathing noted over phone. Patient is able to s peak in full sentences. Neurologic: Alert, oriented to person, place, and time Psychiatric: Normal speech and coherent thought process, appropriate mood and be havior noted over the phone. (-)=Negative, (+)=Positive Actinic Keratosis (A): erythematous scaling papules Ochoa Hemaniogioma (CH): smooth red and purple papules Dermatitis Erythema (DE): mild to moderate erythema and scaling Dermatitis Lichenified (DL): lichenification and thickening Dermatitis Weeping (DW): weeping and excoriation Inflamed Seborrheic Keratosis (ISK): inflamed warty brown papules and plaques Millium (ML): Small white cystic papule Molluscum Contagiosum (MC): umbilicated papule Nevus Macular (NM): well circumsc ribed evenly pigmented macule Nevus Papular (CLINICAL ATHLETIC INSTRUCTOR): well circumscribed evenly pigmented papule Psoriasis Circumscribed (PC): well circumscribed erythema and scaling Psoriasis Diffuse (PD): diffuse patches of erythema and scaling Seborrheic Keratosis (SK): verrucous brown papules and plaques Scar (SR): cicatricial change Verruca Vulgarus (W): warty hyperkeratotic papule Assessment/Plan Cutaneous Lupus Erythematosus, lupus profundus type with family history of disco id lupus in a cousin. - Continues to be well controlled today - Previous path by outside physician: superficial and deep perivascular infiltra te on 02/2018. Path report did not specify eosinophils present. - Repeat rash biopsy on 06/30/18 also c/w lupus erythematosus Labs reviewed: - CORY negative from outside physician on 03/2018. - CORY, MECHATRONICS TECHNICIAN, SSA, SSB, C3 and C4 were all wnl on 07/17/18. - Negative pemphigoid panel and epidermal transglutamina se - DIF and IIF negative - CMP, CBC in 09/2018; CK, G6PD in 08/06/18. Also states s he had CBC, CMP at her most recent hospital visit that were WNL. - Pt says she showed the CXR from 07/30/18 to her PCP, who told the patient that the lung lesion has not significantly changed. Records provided previously and u ploaded into chart - Has been treated for scabies in the past. - Continue halobetasol 0.05% cream BID PRN lesions - Discontinued saxagliptin-metformin in Jun 2018 - She reports seeing ophthalmology at [facility] about twice a year due to "inc reased pressure in the eyes", per pt. At her most recent appointment she says th e [place] [facility] did not find any retinal findings or other findings that would prevent her from starting plaquenil. - States she had to miss her most recent eye appointment as she got hospitalize d on the same day - Continueplaquenil 200mg PO daily; eRx refill sent. Discussed the importance of annual eye exams. Return to clinic: 3 months A total of 11 minutes spent on the telephone/video call with the patient Clyde Velasquez am scribing for, and in the presence of, Higinio alvarado MD and Resident Dr. Alexx Weir; Higinio Henry MD and Resident Dr Gucci Weir performed and/or ordered the services described here-in. Clyde Brito 08/17/2019 09:05 Dr. Alexx Velasquez, personally performed and/or ordered the services descri bed in this documentation, as scribed by Clyde Brito in my presence, and i t is both accurate and complete. The patient spoke and was actively evaluated with Higinio Henry MD, who a grees with the assessment and plan as above at the time of his/her co-signature. Alexx Weir MD PGY-[address] [facility] Dermatology documented in this encounter Plan of Treatment Health Maintenance Due Date Last Done Comments [...] encounter Visit Diagnoses Diagnosis Cutaneous lupus erythematosus - Primary Lupus erythematosus Medication monitoring encounter Encounter for therapeutic drug monitori ng documented in this encounter Insurance Type Payer Benefit Subscriber ID Effective Phone Address Plan / Dates Group [id number] 2006- [facility] Present [id number] (Home) [place], [place] [address] documented as of this encounter
--- OUTSIDE RECORDS SUMMARY | 2019-09-16 05:50 | XMS REPORT | Summary of Care ---
Author Author [facility] - Health Organization [facility] - Health Address Unknown Phone Unavailable Care Team Providers Care Trash Collector Truck Driver Name Role Phone Julio C Darden PCP Reason for Visit * Reason Comments Medication Problem Encounter Details Care Team Description Date Type Department Higinio Henry MD [address] [facility] [id number] [place] [address] [phone] Medication Problem 08/18/2019 Telephone [facility] Dermato logy, [place] [id number] [facility] [address]tr[address], [address] [place] [address] Allergies Comments Active Allergy Reactions Severity Noted Date Atorvastatin Rash High 03/13/2017 Patient has reaction to swelling in hands after CT 07/23/2018 Iodine And Iodide Swelling 07/24/2018 Containing Products HER BODY TURNS RED BURNING AND ITCHING Niacin Unknown - See 09/01/2010 comments Penicillins Hives, 01/23/2018 Shortness of Breath Uvhtyjg-Wka-Dcj Reductase Hives, Other Inhibitors - See comments [...] Specialty Higinio Henry MD [id number] [place], [place] [id number] 11/17/2019 Office Visit Dermatology Health Maintenance Due [...] Effective Phone Address Plan / Dates Group [id number] 2004- [place] documented as of this encounter
[2019-09-16 08:30] VITALS: BP 129/69
--- NOTE | 2019-09-16 15:45 | Operative Report ---
DATE OF PROCEDURE: 09/16/2019 SURGEON: Nilay Loredo MD PREOPERATIVE DIAGNOSES: 1. Indwelling right ureteral stent. 2. Right ureteral calculi. POSTOPERATIVE DIAGNOSES: 1. Indwelling right ureteral stent. 2. Right ureteral calculi. PROCEDURES: 1. Staged cystoscopy with complicated removal of stent on the right side (entirely separate procedure in staged fashion to remove calcified regular stent). 2. Staged right-sided ureteroscopy with stone extraction (entirely separate procedure for right ureteral calculi). 3. Supervision of fluoroscopy for both ureteroscopy and stent removal portion. 4. Interpretation of retrograde pyelography. ANESTHESIA: General. ESTIMATED BLOOD LOSS: Minimal. COMPLICATIONS: None. INDICATIONS: Ms. Tanner is a very pleasant 64-year-old female with a history of lithotripsy, ureteroscopy, laser, now presenting for cleanup. She voiced understanding of the options, alternatives, risks, and benefits and elected to proceed. PROCEDURE IN DETAIL: After informed consent was obtained, the patient was taken to the operative suite, placed supine on the operative table, underwent general anesthesia by Anesthesia Service, placed in dorsal lithotomy position and sterilely prepped and draped for cystoscopy. A 21-Nepali cystoscope was inserted per urethra. Normal urethra was noted. Panendoscopy of the bladder revealed no tumors, no stones. The stent was seen extruding from the right ureteral orifice and was calcified. A guidewire was inserted alongside the stent. Stent was removed. The ureteroscope was advanced to the level of several offending ureteral calculi, which were basket extracted and passed off the table as specimen. Ureteroscope was then advanced all the way to the level of renal pelvis. Retrograde pyelogram was performed revealing no other obstructing stones or other stones seen. At this time, no stones seen. The ureteroscope was withdrawn. Safety wire was removed. The bladder was drained. The patient was awakened from anesthesia and transported to the recovery room in excellent condition. Supervision of fluoroscopy and interpretation of retrograde pyelography: I was present for the entire procedure and supervised fluoroscopy. There was no radiologist present. Attention was turned to the right ureteral orifice, which was catheterized. Retrograde pyelogram was performed through ureteroscope revealing dilated ureter, interim removal of ureteral calculi, and ureteral stent. IMPRESSION: Normal right retrograde pyelogram. MD RAJEEV Mathews/MODL /[id number]
== END | disposition home or self-care (01) ==
LOC: OR 05:25
PROVIDERS: ATTEND Urology
DX: N20.1 Calculus of ureter (principal); N13.30 Unspecified hydronephrosis; R35.1 Nocturia; N39.0 Urinary tract infection, site not specified; J44.9 Chronic obstructive pulmonary disease, unspecified; I10 Essential (primary) hypertension; E11.9 Type 2 diabetes mellitus without complications; M32.9 Systemic lupus erythematosus, unspecified; F17.290 Nicotine dependence, other tobacco product, uncomplicated; Z91.041 Radiographic dye allergy status; Z88.0 Allergy status to penicillin; Z88.8 Allergy status to other drugs, medicaments and biological substances; Z91.048 Other nonmedicinal substance allergy status; Z46.6 Encounter for fitting and adjustment of urinary device; Z01.812 Encounter for preprocedural laboratory examination; Z11.59 Encounter for screening for other viral diseases; Z84.1 Family history of disorders of kidney and ureter
CPT/HCPCS: 36415 ×2; 52352; 74420; 80048; 82948; 85025; 87635; 88300; C1758; J1100; J1580; J2001; J2405; J2704; J3010; Q9967